=== PATIENT | female | born 1975 ===

== ENCOUNTER 2020-04-30 14:27 | Outpatient (REF) | payer SELFPAY ==
[2020-04-30 14:46] LABS: COVID-19 Test Negative (Negative)
== END 2020-04-30 14:28 | disposition home or self-care (01) ==
LOC: HO.LAB 14:27
PROVIDERS: Visit Provider Internal Medicine
DX: Z20.828 Contact with and (suspected) exposure to other viral communicable diseases (principal)
CPT/HCPCS: 87635

== ENCOUNTER 2020-05-07 07:21 | Outpatient (REF) | payer OTHER, SELFPAY ==
[2020-05-07 08:13] LABS: COVID-19 Test Negative (Negative)
== END 2020-05-07 07:22 | disposition home or self-care (01) ==
LOC: HO.LAB 07:21
PROVIDERS: Visit Provider Internal Medicine
DX: Z20.828 Contact with and (suspected) exposure to other viral communicable diseases (principal)
CPT/HCPCS: 87635

== ENCOUNTER 2020-05-09 14:15 | Outpatient (REF) | payer OTHER, SELFPAY ==
[2020-05-09 14:35] LABS: COVID-19 Test Negative (Negative)
== END 2020-05-09 14:16 | disposition home or self-care (01) ==
LOC: HO.LAB 14:15
PROVIDERS: Visit Provider Internal Medicine
DX: Z20.828 Contact with and (suspected) exposure to other viral communicable diseases (principal)
CPT/HCPCS: 87635

== ENCOUNTER 2020-12-29 10:10 | Emergency (ER) | payer OTHER, SELFPAY ==
--- NOTE | ~2020-12-29 | US_ITS ---
EXAMINATION: ULTRASOUND PELVIS TRANSVAGINAL CLINICAL INFORMATION: Severe pelvic pain rule out ovarian torsion chest COMPARISON: None TECHNIQUE: Transabdominal and transvaginal imaging of pelvis is performed FINDINGS: The uterus is anteverted measuring 8.8 cm in length, 4.7 cm in AP and 5.8 cm in transverse dimension. The myometrium is heterogeneous in echotexture. The endometrial thickness measures 0.72 cm. No focal lesions seen. There is small fluid within the cervical canal. Right ovary measures 4.3 x 1.9 x 3.0 cm and volume 12.5 cm. A small anechoic simple cyst measuring 1.7 x 1.9 x 1.6 cm. The left ovary is irregular and measures 5.3 x 2.4 x 2.1 cm. It is slightly hyperemic.. There is small or free fluid in cul-de-sac. US/US pelvic and transvaginal IMPRESSION: Heterogenous myometrium but no focal lesion seen. Simple right ovarian cyst. Irregular appearing ovary slightly hyperemic but no focal lesion seen. There is no ovarian torsion. There is minimal free fluid in cul-de-sac and the cervical canal.
--- NOTE | ~2020-12-29 | US_ITS ---
EXAMINATION: ULTRASOUND PELVIS TRANSVAGINAL CLINICAL INFORMATION: Severe pelvic pain rule out ovarian torsion chest COMPARISON: None TECHNIQUE: Transabdominal and transvaginal imaging of pelvis is performed FINDINGS: The uterus is anteverted measuring 8.8 cm in length, 4.7 cm in AP and 5.8 cm in transverse dimension. The myometrium is heterogeneous in echotexture. The endometrial thickness measures 0.72 cm. No focal lesions seen. There is small fluid within the cervical canal. Right ovary measures 4.3 x 1.9 x 3.0 cm and volume 12.5 cm. A small anechoic simple cyst measuring 1.7 x 1.9 x 1.6 cm. The left ovary is irregular and measures 5.3 x 2.4 x 2.1 cm. It is slightly hyperemic.. There is small or free fluid in cul-de-sac. US/US pelvic ovarian doppler IMPRESSION: Heterogenous myometrium but no focal lesion seen. Simple right ovarian cyst. Irregular appearing ovary slightly hyperemic but no focal lesion seen. There is no ovarian torsion. There is minimal free fluid in cul-de-sac and the cervical canal.
--- NOTE | ~2020-12-29 | CT_ITS ---
EXAMINATION: CT ABDOMEN AND PELVIS WITH CONTRAST CLINICAL INFORMATION: Lower abdominal pain and elevated white blood cell count. COMPARISON: Previous pelvic ultrasound from earlier the same day TECHNIQUE: Multidetector volumetric images were obtained from the superior aspect of the liver through the pubic symphysis following administration 85 mL of Omnipaque 350 intravenous contrast. Sagittal and coronal reformatted images were obtained on the technologist's workstation. Oral contrast: Yes This CT examination was performed using dose optimization techniques as appropriate, variously including the following: *Automated exposure control *Adjustment of mA and/or kV according to patient size (this includes techniques or standardized protocols for targeted exams where dose is matched to indication/reason for exam; i.e. extremities or head) *Use of iterative reconstruction technique DLP: 646 mGy-cm. FINDINGS: LUNG BASES: The visualized lung bases are unremarkable. LIVER, GALLBLADDER, AND BILIARY TREE: There are 2 small low-attenuation liver lesions probably representing is measuring 5 mm high in the right lobe axial image 22 measuring 1 cm in the dome of the liver axial image 10 series 3. The gallbladder is normal. There is no biliary duct dilatation. PANCREAS: Unremarkable. SPLEEN: Unremarkable. ADRENAL GLANDS: Unremarkable. KIDNEYS AND URETERS: The kidneys are normal in size, shape, and attenuation. No hydronephrosis, hydroureter, or calculi seen. No perinephric stranding. BLADDER: Unremarkable. GASTROINTESTINAL TRACT: There is diverticulosis of the colon. There is wall thickening of the sigmoid colon and stranding of the pericolic fat suggestive of mild sigmoid diverticulitis. There is a small amount of fluid in the pelvis. No evidence of obstruction, perforation or abscess is seen. The small and large bowel is otherwise unremarkable. The appendix is not seen. The stomach is unremarkable. ABDOMINAL WALL: No significant hernia is appreciated. LYMPH NODES: Normal. VASCULAR: Unremarkable. PELVIC VISCERA: There are surgical clips in the pelvis. The uterus and adnexa are otherwise unremarkable. There is a small amount of fluid in the pelvis. OSSEOUS STRUCTURES: Unremarkable. CT/CT abdomen pelvis w con IMPRESSION: Sigmoid diverticulitis. Small amount of fluid in the pelvis.
[2020-12-29 10:16] VITALS: BP 132/74; PULSE 99; RESP 20; TEMP 36.5; O2SAT 100; BMI 28.7
[2020-12-29 10:25] VITALS: BP 132/74; PULSE 97; RESP 20; O2SAT 100
--- NOTE | 2020-12-29 10:27 | PC.NURSE ---
Pt alert, oriented, vss, no sob, LSCTA. Pt reports diffused abd pain and bloating since last night which has gotten worse over the course of the morning. She reports nausea no vomiting. Tender to touch LL abd, visible abd bloating, +Bowel sounds x4, HOWARD Avelar at bedside.
--- NOTE | 2020-12-29 10:44 | ED_ITS ---
HPI - Abdominal Pain General Chief Complaint: Abdominal Pain <HOWARD Kendall - Last Filed: 12/29/20 16:21> Stated Complaint: ?Ovarian Cyst <HOWARD Kendall - Last Filed: 12/29/20 16:21> Time Seen by Provider: 12/29/20 10:22 <HOWARD Kendall - Last Filed: 12/29/20 16:21> Source: patient <HOWARD Kendall - Last Filed: 12/29/20 16:21> Mode of arrival: ambulatory <HOWARD Kendall - Last Filed: 12/29/20 16:21> Limitations: no limitations <HOWARD Kendall - Last Filed: 12/29/20 16:21> History of Present Illness HPI narrative: 45 y/o female with remote history of breast cancer, history of ovarian artery equalization in the past who presents with severe lower abdominal pain that started last night. Pain is sharp and stabbing and located in her lower abdomen, last night was worse on the left and now it is diffusely painful throu ghout her lower abdomen. She denies vaginal bleeding or discharge. LMP 6/5. She thinks she has an ovarian cyst in the past and it feels like it ruptured. She is s/p appendectomy in the past. She denies N/V/D or constipation. No fever or chills. <HOWARD Kendall - Last Filed: 12/29/20 16:21> MD elicited complaint: abdominal pain <HOWARD Kendall - Last Filed: 12/29/20 16:21> Pertinent past history: none <HOWARD Kendall - Last Filed: 12/29/20 16:21> Onset (ago): day(s) (1) <HOWARD Kendall - Last Filed: 12/29/20 16:21> Pain Consistency: constant <HOWARD Kendall Last Filed: 12/29/20 16:21> Location: suprapubic and pelvis <HOWARD Kendall Last Filed: 12/29/20 16:21> Severity: moderate <HOWARD Kendall Last Filed: 12/29/20 16:21> Quality: stabbing and sharp <HOWARD Kendall Last Filed: 12/29/20 16:21> Radiation: none <HOWARD Kendall Last Filed: 12/29/20 16:21> Migration to: no migration <HOWARD Kendall Last Filed: 12/29/20 16:21> Exacerbating factors: movement <HOWARD Kendall Last Filed: 12/29/20 16:21> Relieving factors: medication <HOWARD Kendall Last Filed: 12/29/20 16:21> Associated symptoms: denies other symptoms <HOWARD Kendall Last Filed: 12/29/20 16:21> Treatments prior to arrival: NSAIDs <HOWARD Kendall Last Filed: 12/29/20 16:21> Related Data Home Medications: Previous Rx's Medication Instructions Recorded ciprofloxacin HCl 500 mg PO BID #14 tab 12/29/20 ibuprofen 800 mg PO Q8H PRN #10 tab 12/29/20 metronidazole [Flagyl] 500 mg PO BID #14 tab 12/29/20 ondansetron HCl [Zofran] 4 mg PO Q8H PRN #10 tab 12/29/20 oxycodone 5 mg PO Q8H PRN #6 tab 12/29/20 <HOWARD Kendall Last Filed: 12/29/20 16:21> Allergies/Adverse Reactions: Allergies Allergy/AdvReac Type Severity Reaction Status Date / Time sulfamethoxazole Allergy Unknown SWELLING Unverified 04/02/20 18:51 [From BACTRIM] trimethoprim [From BACTRIM] Allergy Unknown SWELLING Unverified 04/02/20 18:51 <HWOARD Kendall Last Filed: 12/29/20 16:21> Review of Systems Review of Systems Constitutional: No Fever, No Chills ENT/Mouth: No sore throat, No Rhinorrhea, No Swallowing Difficulty Eyes: No Eye Pain, No Swelling, No Redness Cardiovascular: No Chest Pain, No SOB, No Orthopnea, No Edema Respiratory: No Cough, No Sputum, No Wheezing, No dyspnea Gastrointestinal: No Nausea, No Vomiting, No Diarrhea, + abdominal Pain, No Hematochezia, No Melena Genitourinary: No Dysuria, No Urinary Frequency, No Hematuria Musculoskeletal: No joint pain, No Myalgias Skin: No Skin Lesions, No rash Neuro: No Weakness, No Numbness, No Dizziness, No Headache Psych: No Anxiety/Panic, No Depression Heme/Lymph: No Bruising, No Lymphadenopathy Endocrine: No Polyuria, No Polydipsia <HOWARD Kendall - Last Filed: 12/29/20 16:21> Physical Exam Vital Signs: Vital Signs: Last Vital Signs Temp 97.7 F 12/29/20 10:16 Pulse 100 12/29/20 14:42 Resp 18 12/29/20 14:42 BP 130/79 12/29/20 14:42 Pulse Ox 96 12/29/20 14:42 Body Mass Index 28.7 Appearance: Alert. Oriented X3. Appears uncomfortable. Eyes: Pupils equal, round and reactive to light. ENT: Pharynx normal. Neck: Normal inspection. Neck supple. CVS: Normal heart rate and rhythm. Pulses normal. Respiratory: No respiratory distress. Breath sounds normal. Abdomen: Soft with lower abdominal tenderness and rebound and guarding. +BS x4 Skin: Skin warm and dry. Normal skin color. Normal skin turgor. No rashes. Extremities: No lower extremity edema. Neuro: Oriented X 3. No motor deficit. No sensory deficit. <HOWARD Kendall - Last Filed: 12/29/20 16:21> Vital Signs: Last Vital Signs Temp 97.7 F 12/29/20 10:16 Pulse 100 12/29/20 14:42 Resp 18 12/29/20 14:42 BP 130/79 12/29/20 14:42 Pulse Ox 96 12/29/20 14:42 Body Mass Index 28.7 <Jensen Peoples MD - Last Filed: 02/06/21 08:53> Course Course Course Narrative: 45 y/o female presenting with severe lower abdominal pain x1 day. Concern for prior ovarian cyst. Will need to r/o torsion. Pelvic U/S and labs ordered. Pain currently improved to 4/10 after 800 mg Advil taken [employer]. <HOWARD Kendall - Last Filed: 12/29/20 16:21> I have reviewed the chart <Jensen Peoples MD - Last Filed: 02/06/21 08:53> Reevaluation(s) Reevaluation #1: Labs show leukocytosis with WBC 16K. Pelvic U/S: Heterogenous myometrium but no focal lesion seen. Simple right ovarian cyst. Irregular appearing ovary slightly hyperemic but no focal lesion seen. There is no ovarian torsion. There is minimal free fluid in cul-de-sac and the cervical canal. Given patient's pain will proceed with CT scan for further evaluation. <HOWARD Kendall - Last Filed: 12/29/20 16:21> Reevaluation #2: CT showing sigmoid diverticulitis. No vomiting or fevers. She is stable for initiation of PO antibiotics, pain control, antiemetics and discharge home. She is agreeable with plan. Counseled on management and wanring signs to return to the ER. Comfortable with d/c home, instructed to return if pain worsens or if she develops fevers. <HOWARD Kendall - Last Filed: 12/29/20 16:21> MDM - Abdominal Pain Lab Data Result diagrams: : 12/29/20 10:44 12/29/20 10:44 <HOWARD Kendall - Last Filed: 12/29/20 16:21> Labs: Lab Results 12/29/20 12/29/20 12/29/20 Range/Units 10:44 10:44 12:27 WBC 16.1 H (4.8-10.8) X10*3/uL RBC 4.17 L (4.20-5.50) X10*6/uL Hgb 12.9 (12.0-16.0) g/dl Hct 37.6 (37-47) % MCV 90.2 (80-98) fL MCH 30.9 (27.0-33.0) pg MCHC 34.3 (31.0-35.0) g/dl RDW 12.5 (11.0-16.0) % Plt Count 300 (160-400) X10*3/uL MPV 9.3 L (9.4-12.3) fL Immature Gran % (Auto) 0.6 H (0.0-0.4) % Neut % (Auto) 77.7 H (45-73) % Lymph % (Auto) 11.6 L (20-40) % [place] % (Auto) 8.9 (2-11) % Eos % (Auto) 1.0 (0-4) % Baso % (Auto) 0.2 (0-2) % Lymph # (Auto) 1.9 (1.2-4.9) X10*3/uL [place] # (Auto) 1.4 H (0.1-1.2) X10*3/uL Eos # (Auto) 0.2 (0.0-0.4) X10*3/uL Baso # (Auto) 0.0 (0.0-0.2) X10*3/uL Abs Immat Gran (auto) 0.09 H (0.00-0.03) X10*3/uL Absolute Neuts (auto) 12.5 H (2.0-8.3) X10*3/uL Absolute Nucleated RBC 0.000 (0.0-0.012) X10*3/uL Nucleated RBC % (auto) 0.0 (0.0-0.2) /100WBC Sodium 138 (135-145) mmol/L Potassium 3.9 (3.3-5.1) mmol/L Chloride 106 (96-108) mmol/L Carbon Dioxide 23 (22-29) mmol/L Anion Gap 13 (12-20) BUN 8 L (9-16) mg/dL Creatinine 0.68 (0.5-1.4) mg/dL Estim Creat Clear Calc 110.8 Estimated GFR > 60 Random Glucose 88 (60-115) mg/dL Calcium 8.9 (8.4-10.2) mg/dL Magnesium 1.8 (1.6-2.6) mg/dL Total Bilirubin 1.1 H (0.0-1.0) mg/dL Direct Bilirubin 0.4 (0.0-0.5) mg/dL AST 13 (5-31) U/L ALT 13 (0-31) U/L Alkaline Phosphatase 57 (39-117) U/L Total Protein 6.6 (6.5-8.0) g/dL Albumin 4.1 (3.5-5.0) g/dL Urine Color YELLOW Urine Appearance HAZY Urine pH 7.5 (5.0-8.0) Ur Specific [place] 1.010 (1.005-1.025) Urine Protein NEG (NEG-TRACE) MG/DL Urine Glucose (UA) NEG (NEG) MG/DL Urine Ketones 15 (NEG) MG/DL Urine Blood 1+ H (NEG) Urine Nitrite NEG (NEG) Ur Leukocyte Esterase NEG (NEG) Urine RBC 5-9 H (0) /HPF Urine WBC 0 (0-4) /HPF Ur Squamous Epith Cells 1+ /LPF Urine Bacteria NONE /LPF Urine Test (NEGATIVE) 12/29/20 Range/Units 12:27 WBC (4.8-10.8) X10*3/uL RBC (4.20-5.50) X10*6/uL Hgb (12.0-16.0) g/dl Hct (37-47) % MCV (80-98) fL MCH (27.0-33.0) pg MCHC (31.0-35.0) g/dl RDW (11.0-16.0) % Plt Count (160-400) X10*3/uL MPV (9.4-12.3) fL Immature Gran % (Auto) (0.0-0.4) % Neut % (Auto) (45-73) % Lymph % (Auto) (20-40) % [place] % (Auto) (2-11) % Eos % (Auto) (0-4) % Baso % (Auto) (0-2) % Lymph # (Auto) (1.2-4.9) X10*3/uL [place] # (Auto) (0.1-1.2) X10*3/uL Eos # (Auto) (0.0-0.4) X10*3/uL Baso # (Auto) (0.0-0.2) X10*3/uL Abs Immat Gran (auto) (0.00-0.03) X10*3/uL Absolute Neuts (auto) (2.0-8.3) X10*3/uL Absolute Nucleated RBC (0.0-0.012) X10*3/uL Nucleated RBC % (auto) (0.0-0.2) /100WBC Sodium (135-145) mmol/L Potassium (3.3-5.1) mmol/L Chloride (96-108) mmol/L Carbon Dioxide (22-29) mmol/L Anion Gap (12-20) BUN (9-16) mg/dL Creatinine (0.5-1.4) mg/dL Estim Creat Clear Calc Estimated GFR Random Glucose (60-115) mg/dL Calcium (8.4-10.2) mg/dL Magnesium (1.6-2.6) mg/dL Total Bilirubin (0.0-1.0) mg/dL Direct Bilirubin (0.0-0.5) mg/dL AST (5-31) U/L ALT (0-31) U/L Alkaline Phosphatase (39-117) U/L Total Protein (6.5-8.0) g/dL Albumin (3.5-5.0) g/dL Urine Color Urine Appearance Urine pH (5.0-8.0) Ur Specific [place] (1.005-1.025) Urine Protein (NEG-TRACE) MG/DL Urine Glucose (UA) (NEG) MG/DL Urine Ketones (NEG) MG/DL Urine Blood (NEG) Urine Nitrite (NEG) Ur Leukocyte Esterase (NEG) Urine RBC (0) /HPF Urine WBC (0-4) /HPF Ur Squamous Epith Cells /LPF Urine Bacteria /LPF Urine Test NEGATIVE (NEGATIVE) <HOWARD Kendall - Last Filed: 12/29/20 16:21> Lab Results 12/29/20 12/29/20 12/29/20 Range/Units 10:44 10:44 12:27 WBC 16.1 H (4.8-10.8) X10*3/uL RBC 4.17 L (4.20-5.50) X10*6/uL Hgb 12.9 (12.0-16.0) g/dl Hct 37.6 (37-47) % MCV 90.2 (80-98) fL MCH 30.9 (27.0-33.0) pg MCHC 34.3 (31.0-35.0) g/dl RDW 12.5 (11.0-16.0) % Plt Count 300 (160-400) X10*3/uL MPV 9.3 L (9.4-12.3) fL Immature Gran % (Auto) 0.6 H (0.0-0.4) % Neut % (Auto) 77.7 H (45-73) % Lymph % (Auto) 11.6 L (20-40) % [place] % (Auto) 8.9 (2-11) % Eos % (Auto) 1.0 (0-4) % Baso % (Auto) 0.2 (0-2) % Lymph # (Auto) 1.9 (1.2-4.9) X10*3/uL [place] # (Auto) 1.4 H (0.1-1.2) X10*3/uL Eos # (Auto) 0.2 (0.0-0.4) X10*3/uL Baso # (Auto) 0.0 (0.0-0.2) X10*3/uL Abs Immat Gran (auto) 0.09 H (0.00-0.03) X10*3/uL Absolute Neuts (auto) 12.5 H (2.0-8.3) X10*3/uL Absolute Nucleated RBC 0.000 (0.0-0.012) X10*3/uL Nucleated RBC % (auto) 0.0 (0.0-0.2) /100WBC Sodium 138 (135-145) mmol/L Potassium 3.9 (3.3-5.1) mmol/L Chloride 106 (96-108) mmol/L Carbon Dioxide 23 (22-29) mmol/L Anion Gap 13 (12-20) BUN 8 L (9-16) mg/dL Creatinine 0.68 (0.5-1.4) mg/dL Estim Creat Clear Calc 110.8 Estimated GFR > 60 Random Glucose 88 (60-115) mg/dL Calcium 8.9 (8.4-10.2) mg/dL Magnesium 1.8 (1.6-2.6) mg/dL Total Bilirubin 1.1 H (0.0-1.0) mg/dL Direct Bilirubin 0.4 (0.0-0.5) mg/dL AST 13 (5-31) U/L ALT 13 (0-31) U/L Alkaline Phosphatase 57 (39-117) U/L Total Protein 6.6 (6.5-8.0) g/dL Albumin 4.1 (3.5-5.0) g/dL Urine Color YELLOW Urine Appearance HAZY Urine pH 7.5 (5.0-8.0) Ur Specific [place] 1.010 (1.005-1.025) Urine Protein NEG (NEG-TRACE) MG/DL Urine Glucose (UA) NEG (NEG) MG/DL Urine Ketones 15 (NEG) MG/DL Urine Blood 1+ H (NEG) Urine Nitrite NEG (NEG) Ur Leukocyte Esterase NEG (NEG) Urine RBC 5-9 H (0) /HPF Urine WBC 0 (0-4) /HPF Ur Squamous Epith Cells 1+ /LPF Urine Bacteria NONE /LPF Urine Test (NEGATIVE) 12/29/20 Range/Units 12:27 WBC (4.8-10.8) X10*3/uL RBC (4.20-5.50) X10*6/uL Hgb (12.0-16.0) g/dl Hct (37-47) % MCV (80-98) fL MCH (27.0-33.0) pg MCHC (31.0-35.0) g/dl RDW (11.0-16.0) % Plt Count (160-400) X10*3/uL MPV (9.4-12.3) fL Immature Gran % (Auto) (0.0-0.4) % Neut % (Auto) (45-73) % Lymph % (Auto) (20-40) % [place] % (Auto) (2-11) % Eos % (Auto) (0-4) % Baso % (Auto) (0-2) % Lymph # (Auto) (1.2-4.9) X10*3/uL [place] # (Auto) (0.1-1.2) X10*3/uL Eos # (Auto) (0.0-0.4) X10*3/uL Baso # (Auto) (0.0-0.2) X10*3/uL Abs Immat Gran (auto) (0.00-0.03) X10*3/uL Absolute Neuts (auto) (2.0-8.3) X10*3/uL Absolute Nucleated RBC (0.0-0.012) X10*3/uL Nucleated RBC % (auto) (0.0-0.2) /100WBC Sodium (135-145) mmol/L Potassium (3.3-5.1) mmol/L Chloride (96-108) mmol/L Carbon Dioxide (22-29) mmol/L Anion Gap (12-20) BUN (9-16) mg/dL Creatinine (0.5-1.4) mg/dL Estim Creat Clear Calc Estimated GFR Random Glucose (60-115) mg/dL Calcium (8.4-10.2) mg/dL Magnesium (1.6-2.6) mg/dL Total Bilirubin (0.0-1.0) mg/dL Direct Bilirubin (0.0-0.5) mg/dL AST (5-31) U/L ALT (0-31) U/L Alkaline Phosphatase (39-117) U/L Total Protein (6.5-8.0) g/dL Albumin (3.5-5.0) g/dL Urine Color Urine Appearance Urine pH (5.0-8.0) Ur Specific [place] (1.005-1.025) Urine Protein (NEG-TRACE) MG/DL Urine Glucose (UA) (NEG) MG/DL Urine Ketones (NEG) MG/DL Urine Blood (NEG) Urine Nitrite (NEG) Ur Leukocyte Esterase (NEG) Urine RBC (0) /HPF Urine WBC (0-4) /HPF Ur Squamous Epith Cells /LPF Urine Bacteria /LPF Urine Test NEGATIVE (NEGATIVE) <Jensen Peoples MD - Last Filed: 02/06/21 08:53> Discharge Plan Discharge Clinical Impression: Diverticulitis <HOWARD Kendall - Last Filed: 12/29/20 16:21> Patient Disposition: Home, Self-Care <HOWARD Kendall - Last Filed: 12/29/20 16:21> Instructions: Diverticulitis (ED), Diverticulitis Diet (ED) <HOWARD Kendall - Last Filed: 12/29/20 16:21> Additional Instructions: Your CT scan showed diverticulitis of your sigmoid colon. Take all of the medications as prescribed. If you develop worsening abdominal pain, nausea or vomiting or fevers come back to the ER for further evaluation. Follow up with GI in 1 week. Stick to a pure liquid diet for 48-72 hours. Allow your bowels to rest. <HOWARD Kendall - Last Filed: 12/29/20 16:21> Prescriptions: New ciprofloxacin HCl 500 mg tablet 500 mg PO BID Qty: 14 RF: 0 metronidazole [Flagyl] 500 mg tablet 500 mg PO BID Qty: 14 RF: 0 ondansetron HCl [Zofran] 4 mg tablet 4 mg PO Q8H PRN (Reason: nausea and vomiting) Qty: 10 RF: 0 ibuprofen 800 mg tablet 800 mg PO Q8H PRN (Reason: pain) Qty: 10 RF: 0 oxycodone 5 mg tablet 5 mg PO Q8H PRN (Reason: pain) Qty: 6 RF: 0 <HOWARD Kendall - Last Filed: 12/29/20 16:21> Referrals: Sosa Jackson MD [Physician] - 1 week (sigmoid diverticulitis ) <HOWARD Kendall - Last Filed: 12/29/20 16:21> Stand Alone Forms: Work/School Release <HOWARD Kendall - Last Filed: 12/29/20 16:21> Interventions: ED Discharge Assessment Last Done: 12/29/20 16:36 <HOWARD Kendall - Last Filed: 12/29/20 16:21> Discharge Date/Time: 12/29/20 16:38 <HOWARD Kendall - Last Filed: 12/29/20 16:21> [facility] Past Medical History Attestation statement: The following information was validated with the patient. <HOWARD Kendall - Last Filed: 12/29/20 16:21> Medical History: Medical History (Updated 12/30/20 @ 00:01 by Monique Contreras) Breast cancer <HOWARD Kendall - Last Filed: 12/29/20 16:21> Surgical History: Surgical History (Updated 12/29/20 @ 13:21 by HOWARD Kendall) History of appendectomy Status post embolization of uterine artery <HOWARD Kendall - Last Filed: 12/29/20 16:21> Social History Social History: Social History Use of substances other than those prescribed or required for medical reasons: No Advance Directives: No Advance Directives Information Provided: No <HOWARD Kendall - Last Filed: 12/29/20 16:21>
[2020-12-29 10:48] LABS: MANUAL DIFF FLAG NO
[2020-12-29 10:50] LABS: Basophils Percent Auto 0.2 % (0-2); Eosinophils Absolute Auto 0.2 X10*3/uL (0.0-0.4); Hematocrit 37.6 % (37-47); Hemoglobin 12.9 g/dl (12.0-16.0); Imm Gran Abs Auto 0.09 X10*3/uL (0.00-0.03); Imm Gran Pct Auto 0.6 % (0.0-0.4); Lymphocytes Absolute Auto 1.9 X10*3/uL (1.2-4.9); Lymphocytes Percent Auto 11.6 % (20-40); Mean Corpuscular HGB Conc 34.3 g/dl (31.0-35.0); Mean Corpuscular Hemoglobin 30.9 pg (27.0-33.0); Mean Corpuscular Volume 90.2 fL (80-98); Mean Platelet Volume 9.3 fL (9.4-12.3); Monocytes Absolute Auto 1.4 X10*3/uL (0.1-1.2); Monocytes Percent Auto 8.9 % (2-11); Neutrophils Absolute Auto 12.5 X10*3/uL (2.0-8.3); Neutrophils Percent Auto 77.7 % (45-73); Platelet Count 300 X10*3/uL (160-400); Red Blood Count 4.17 X10*6/uL (4.20-5.50); Red Cell Distribution Width 12.5 % (11.0-16.0); White Blood Count 16.1 X10*3/uL (4.8-10.8)
--- NOTE | 2020-12-29 10:56 | PC.NURSE ---
Pt to ultrasound at this time.
[2020-12-29 11:17] LABS: Alanine Aminotransferase 13 U/L (0-31); Albumin Level 4.1 g/dL (3.5-5.0); Alkaline Phosphatase 57 U/L (39-117); Anion Gap 13 (12-20); Aspartate Amino Transferase 13 U/L (5-31); Bilirubin Direct 0.4 mg/dL (0.0-0.5); Bilirubin Total 1.1 mg/dL (0.0-1.0); Blood Urea Nitrogen 8 mg/dL (9-16); Calcium 8.9 mg/dL (8.4-10.2); Carbon Dioxide 23 mmol/L (22-29); Chloride 106 mmol/L (96-108); Creatinine Clr Calc Pharmacy 110.8; Estimated Glomerular Filt Rate > 60; Glucose Random 88 mg/dL (60-115); Magnesium 1.8 mg/dL (1.6-2.6); Potassium 3.9 mmol/L (3.3-5.1); Sodium 138 mmol/L (135-145); Total Protein 6.6 g/dL (6.5-8.0)
[2020-12-29 12:05] VITALS: BP 120/79; PULSE 103; RESP 20; O2SAT 100
[2020-12-29 12:35] LABS: Glucose Urine UA NEG (NEG); Leukocyte Esterase Urine NEG (NEG); Nitrite Urine NEG (NEG); PH 7.5 (5.0-8.0); Urine Blood 1+ (NEG); Urine Ketones 15 MG/DL (NEG); Urine Protein NEG (NEG-TRACE)
[2020-12-29 12:37] LABS: Appearance Urine HAZY; Color Urine YELLOW; UPreg QC Valid YES; Urine Pregnancy NEGATIVE (NEGATIVE)
[2020-12-29 12:43] LABS: Squamous Epithelial Cell Urine 1+ /LPF; WBC Urine 0 /HPF (0-4)
[2020-12-29] MEDS: Acetaminophen 325 MG TABLET 975 MG PO (13:46)
[2020-12-29 13:47] VITALS: BP 146/82; PULSE 103; RESP 16; O2SAT 98
[2020-12-29] MEDS: iohexoL 350 MG/ML 100 ML INFUS..BTL IV (14:11)
[2020-12-29 14:42] VITALS: BP 130/79; PULSE 100; RESP 18; O2SAT 96
== END 2020-12-29 16:38 | disposition home or self-care (01) ==
PROVIDERS: Physician Assistant; Emergency Provider Emergency Medicine; PCP Internal Medicine
DX: K57.32 Diverticulitis of large intestine without perforation or abscess without bleeding (principal); R10.30 Lower abdominal pain, unspecified; Z85.3 Personal history of malignant neoplasm of breast
CPT/HCPCS: 36415; 74177; 76830; 76856; 80048; 80076; 81001; 81025; 83735; 85025; 93975; 99285; Q9967

== ENCOUNTER 2024-03-27 07:54 | Outpatient (AMB) | payer OTHER, SELFPAY ==
--- NOTE | 2024-03-27 07:59 | A.OFFPC_ITS ---
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 Intake Note: new patient to establish care Allergies sulfamethoxazole [From BACTRIM] Allergy (Unknown, Verified 03/27/24 08:27) SWELLING trimethoprim [From BACTRIM] Allergy (Unknown, Verified 03/27/24 08:27) SWELLING Medication List - Last Reconciled 03/27/24 by IBETH Albarran No Known Home Meds Tobacco use date assessed: 03/27/24 Dental Screening Dental Screen Date: 03/27/24 Did you have a dental visit in the last 12 months?: Yes Did you have a dental problem in the last 6 months where you did not have access to dental care?: No Was dental information given to patient?: Patient has dentist HPI HPI Comments History of Present Illness Details 48-year-old female with 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 Colon 2020 done at [facility] ? Mammo UTD ? DEXA n/a ? PAP UTD ? 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 Counseling Here today to establish care. Coming from [place]. No medical records available as of this time. Today the patient would like to discuss mood. Reports that she is perimenopausal. Reports over the last several years she has had symptoms of anxiety and depression. She has been in out of counseling. She is currently in counseling. This has been going helpful. She has never been any medications. When asked about her symptoms she reports that she feels like she has no coping skills, she has a bad temper and does not feel herself. She feels like she is being a bad parent as she loses her temper. She reports that she has a supportive other than that limited social support as she feels more comfortable receiving the travels of others than sharing her travels. Be that as it may, she denies any SI or HI. She denies any night could have coping skills. She does use the gym to help manage her mood. She is profoundly changed her diet in leads a healthy lifestyle. She is open to trying medications. Otherwise in regards to her breast cancer history she reports that she is currently enrolled in his [employer] [facility] for the next several years. She was diagnosed with breast cancer at age 36 during a routine mammo done prior to starting IVF. She is not currently followed by Oncology or breast specialist. She reports that she is clear for routine surveillance. Exam: Awake alert oriented, no acute distress Regular rate and rhythm Thyroid nontender Lung sounds clear to auscultation bilat Tearful when talking about her mood, appropriate and pleasant Plan Check screening labs today >nothing contributing to her anxiety and depressive symptoms. Recommend starting Paxil at a low dose once per day. Continue counseling. Return to the office in 6 weeks to follow up on the start of Paxil, sooner as needed. Labs from today show a normal CBC, normal electrolytes, normal renal function, fasting glucose of 106, hemoglobin A1c 4.9%, normal iron profile, normal LFTs, total cholesterol 189, triglycerides 44, LDL 126, HDL 55, normal B12 folate vitamin-D and TSH This note is constructed using voice recognition software. While every effort has been made to ensure accuracy in putter in, still errors may have been included Sometimes, these errors may affect the content or meaning of the given sentence . Total time spent caring for the patient today was 45 minutes. This includes time spent before the visit reviewing the chart, time spent during the visit, and time spent after the visit on documentation [facility] Medical History (Updated 03/27/24 @ 13:45 by WHIT Albarran-MARTÍN) Diverticulitis Breast cancer Surgical History (Updated 03/27/24 @ 13:45 by WHIT Albarran-MARTÍN) Status post embolization of uterine artery History of appendectomy Family History (Updated 03/27/24 @ 08:14 by Vida Law MA) Father Substance abuse Alcoholic Paternal Grandfather Hypertension High cholesterol Diabetes Cardiovascular disease Mother Thyroid cancer Social History (Updated 03/27/24 @ 08:14 by Vida Law MA) Household Members: Spouse and Children Housing: House Are you a primary director of health care marketing to a significant other at home: No Do you presently have visiting nurse or other home services: No Alcohol intake: current Alcohol intake frequency: a few times a month Alcohol type: wine Patient Tobacco Use Status: Never used Tobacco e-Cigarette/Vaping Use: Never Used service: No Current occupational status: employed 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 1. Little interest or pleasure in doing things: not at all 2. Feeling down, depressed, or hopeless: several days 3. Trouble falling or staying asleep, or sleeping too much: several days 4. Feeling tired or having little energy: more than half the days 5. Poor appetite or overeating: more than half the days 6. Feeling bad about yourself - or that you are a failure or have let yourself or your family down: more than half the days 7. Trouble concentrating on things, such as reading the newspaper or watching television: more than half the days 8. Moving or speaking so slowly that other people could have noticed. Or the opposite - being so fidgety or restless that you have been moving around a lot more than usual: not at all 9. Thoughts that you would be better off or of hurting yourself in some way: not at all Total score: 10 Depression Screening Interpretation: Positive Depression Screening Follow-up: In treatment and New Medication prescribed Depression Screening Done: Yes 06351 - PHQ-9 Billing: Yes Source: Developed by Drs. Tera Miller, Ksenia English, Bola Montiel and colleagues, with an educational jagruti from [employer]. Thrive Questionnaire Date Thrive assessed: 03/27/24 I am a: Patient What is your living situation today?: I have a steady place to live Within the past 12 months, did the food you bought not last and you didn't have the money to get more?: Never true Within the past 12 months, did you worry whether your food would run out before you got money to buy more?: Never true Do you have trouble paying for medicines?: No Do you have trouble getting transportation to medical appointments?: No Do you have trouble paying your heating and electricity bill?: No Do you have trouble taking care of your child, family member or friend?: No Do you have trouble with day-to-day activities such as bathing, preparing meals, shopping, managing finances, etc.?: No Are you currently unemployed and looking for a job?: No Are you interested in more education?: No Please select the resources that you would like help with: None THRIVE Score: 0 AUDIT C Alcohol Use Questionnaire (AUDIT-C) 1. How often do you have a drink containing alcohol?: Never 3. How often do you have six or more drinks on one occasion?: Never Total Score: 0 Score Reviewed/Action Taken: Yes HEATHER-7 AMB Questionnaire HEATHER-7 Date HEATHER - 7 assessed: 03/27/24 Feeling nervous, anxious, or on edge: 2 = More than half the days Not being able to stop or control worryin = More than half the days Worrying too much about different things: 2 = More than half the days Trouble relaxin = More than half the days Being so restless that it is hard to sit still: 2 = More than half the days Becoming easily annoyed or irritable: 2 = More than half the days Feeling afraid as if something awful might happen: 1 = Several days Total HEATHER-7 score (0-4 normal; 5-9 mild; 10-14 moderate; 15-21 severe): 13 Source: Developed by Drs. Tera Miller, Ksenia English, Bola Montiel and colleagues, with an educational jagruti from [employer]. HEATHER-7 Assessment Billing HEATHER-7 Assessment Tool: HEATHER-7 Assessment 42915 Physical exam (Primary Care) Vital Signs: Last Vital Signs Pulse 84 03/27/24 08:06 Resp 15 03/27/24 08:06 BP 142/74 H 03/27/24 08:06 Pulse Ox 100 03/27/24 08:06 Oxygen Delivery Method Room Air 03/27/24 08:06 BMI result Body Mass Index 23.9 Tobacco/Smoking Status: Tobacco use Status Tobacco use date assessed 03/27/24 03/27/24 08:09 Patient Tobacco Use Status Never used Tobacco 03/27/24 08:14 e-Cigarette/Vaping Use Never Used 03/27/24 08:09 PHQ-9: PHQ-9 Score PHQ-9: Total score 10 03/27/24 08:27 Depression Screening Interpretation: Positive Depression Screening Follow-up: In treatment and New Medication prescribed Thrive Assessment: Date of Thrive Assessment Date Thrive assessed 03/27/24 03/27/24 08:11 Assessment and Plan Assessment & Plan (1) MDD (major depressive disorder), recurrent episode: Code(s): F33.9 - Major depressive disorder, recurrent, unspecified Qualifiers: Major depression episode severity: mild Qualified Code(s): F33.0 - Major depressive disorder, recurrent, mild (2) HEATHER (generalized anxiety disorder): Code(s): F41.1 - Generalized anxiety disorder (3) Perimenopause: Code(s): N95.1 - Menopausal and female climacteric states (4) Ductal carcinoma in situ (DCIS) of left breast: Comment: dx age 36 in full remission, s/p lumpectomy Code(s): D05.12 - Intraductal carcinoma in situ of left breast (5) S/P lumpectomy, left breast: Code(s): Z98.890 - Other specified postprocedural states (6) Laboratory exam ordered as part of routine general medical examination: Code(s): Z00.00 - Encounter for general adult medical examination without abnormal findings Orders: Orders Comprehensive [place]. Panel Fast Today Z00.00 - Encounter for general adult medical examination without abnormal findings Hemoglobin A1c Today Z00.00 - Encounter for general adult medical examination without abnormal findings TSH reflex Free T4 Today Z00.00 - Encounter for general adult medical examination without abnormal findings Vitamin B12 and Folate Today Z00.00 - Encounter for general adult medical examination without abnormal findings IRON PROFILE Today Z00.00 - Encounter for general adult medical examination without abnormal findings Vitamin D 25-OH Total Today Z00.00 - Encounter for general adult medical examination without abnormal findings Complete Blood Count no Diff Today Z00.00 - Encounter for general adult medical examination without abnormal findings Lipid Panel Today Z00.00 - Encounter for general adult medical examination without abnormal findings Microalbumin, Random (w Creat) Today Z00.00 - Encounter for general adult medical examination without abnormal findings Medications: New paroxetine HCl (Paxil) 10 mg PO DAILY 30 tabs 1RF Discontinued ibuprofen Discontinued Reason: Patient no longer taking 800 mg PO Q8H PRN 10 tabs 0RF pain oxycodone Discontinued Reason: Patient no longer taking 5 mg PO Q8H PRN 6 tabs 0RF pain ciprofloxacin HCl Discontinued Reason: Patient no longer taking 500 mg PO BID 14 tabs 0RF metronidazole (Flagyl) Discontinued Reason: Patient no longer taking 500 mg PO BID 14 tabs 0RF ondansetron HCl (Zofran) Discontinued Reason: Patient no longer taking 4 mg PO Q8H PRN 10 tabs 0RF nausea and vomiting Patient Instructions: Walk-In Care (Urgent Care): We Make it Easy Walk-in for urgent medical issues such as: ? Seasonal Allergies ? Insect Bites ? Cough ? Diarrhea ? Acute Asthma Attacks ? Back, Knee or Joint Pain ? Ear Infection ? Fever without a Rash ? Headaches ? Nausea ? [place], Rash or Skin Irritation ? Sore Throat ? Sports Physicals ? Vomiting Most insurances are accepted. Patients do not need to be part of the [facility] to seek care at the walk-in clinic. Locations [address] [place] [address] , [place] [address] ? [phone] [facility] Walk-In Care in [place] provides services to ages 18 and over. Open Monday-Monday: 8 a.m. to 5 p.m. and Monday: 9 a.m. to 3 p.m.* *Hours may vary due to staffing availability. To confirm Walk-In Care hours in [place], please call [phone]. [address] [place] [address] ? [phone] [facility] Care in [place] provides services to ages 12 and over. Open Monday-Monday: 8 a.m. to 5 p.m. Hours may vary due to staffing availability. To confirm Walk-In Care hours in [place], please call [phone]. LABORATORY SERVICES: [facility] Lab ? Primary Location [address] [place] [address] Monday through Monday 6:00 AM ? 5:00 PM Monday 7:00 AM ? 11:00 AM* [phone] The [facility] Lab is centrally located near the front entrance of the [facility] for easy outpatient access. Convenient parking is provided for outpatients. *Hours may vary due to staffing availability. To confirm Laboratory hours for any location, please call [phone]. Offsite Location For your convenience, we offer offsite laboratory draw stations at the following locations: [address] [facility], [facility] [place] ? [address], [address], [facility] Monday through Monday 7:30 AM ? 1:00 PM* [phone] *Hours may vary due to staffing availability. To confirm Laboratory hours for any location, please call [phone]. [place] ? [facility] [address] [facility], [place] Monday through Monday 6:00 AM ? 3:30 PM* Monday 6:30 AM ? 3 PM* [phone] *Hours may vary due to staffing availability. To confirm Laboratory hours for any location, please call [phone] [place] [address] Monday through Monday 7:30 AM ? 4:00 PM* [phone] *Hours may vary due to staffing availability. To confirm Laboratory hours for any location, please call [phone] [place] [address] Monday through 9:00 AM ? 4:00 PM* *Hours may vary due to staffing availability. To confirm Laboratory hours for any location, please call [phone]. Appointments are not necessary. Walk-ins are welcome. Like all the departments throughout the [facility], our Lab undergoes frequent reviews to ensure the quality and accuracy of test results, and our staff takes special pride in its status as a nationally accredited facility. Patient Portal: ONE PATIENT. ONE RECORD. BETTER CARE. [facility] has a fully integrated, cutting- edge mobile electronic health information system that has revolutionized the way we care for our patients and manage our organization. This system improves communication and coordination enabling us to provide safe, higher-quality care, and an overall positive experience for staff and patients. Our first priority, as always, is to deliver the highest quality care possible. The system is running in the background supporting that priority. This portal is for all [facility] services and practices. If you are experiencing any technical difficulties with enrolling or logging into the Patient Portal please complete the [facility] Patient Portal Technical Support Form. [facility] now offers a new secure on-line interactive tool for patients to review their health information ? ?Patient Portal. This interactive web portal will enable patients and their families to take an active role in their care by providing easy, secure access to their health information via the internet. The Patient Portal provides patients with instant access to their health in formation, including laboratory results, medications, allergies, demographic information, visit history, and more. In addition to managing their own care, parents and health care proxies with authorized consent will appreciate the ability to access the records of those individuals for whom they provide care. Please note: if you wish to gain access (Proxy) to another patient?s portal, you will be required to come to the Medical Records Department in person at [facility]. Both the patient giving proxy access and the proxy will need to provide photo identification and complete the appropriate authorization. The Patient Portal also allows track their appointments online. The [facility] Patient Portal also saves patients time by allowing them to submit updates to their demographic and contact information prior to their visits. Portal email notifications will also alert patients to any new activity on their portal, such as test results and new appointments. In order to initially enroll in the [facility] Patient Portal, you will need to enter some required information including the following: * your [facility] Medical Record number * your personal home email address * name * date of Please note: In order to enroll in the [facility] Patient Portal, we need to have your email address on file in your electronic medical record. ?The email address needs to be specific for one person (yourself) in order for your Portal enrollment to be successful. ?You can update your email address in person with our Registration staff when you are registering for a hospital visit. ?Otherwise, you will need to come to the Health Information Management (Medical Records) Department at [facility]. ?We are open from Monday ? Monday from 7:30 a.m. ? 4:30 p.m. ?You will be required to present a photo id. Once you have successfully enrolled in the Patient Portal, you will receive a one-time user id and password for the Portal, sent to your email address. ?This will allow you to log into the Patient Portal within 99 hrs and reset your own logon id and password, and define personal security questions. ?Once your permanent login and password have been set, you can log into the [facility] Patient Portal at any time via the blue button above or from the Portal Logon button on any page of the [facility] website. [facility] encourage all of our patients to enroll in Patient Portal as it presents a valuable opportunity for patients and their families to actively participate in their care and stay healthy Welcome to [facility]. ?We look forward to working with you. Crisis Hotlines Suicide prevention, domestic violence, and other crisis hotlines for youth, young adults, and their friends and families. [place] Safeline: The [employer] Safeline helps youth who have run away, are thinking about running away, or who already ran away but are ready to come home. Parents and guardians can also contact the hotline if they are worried about their child running away or if their child has already left home. The hotline is available 24 hours a day, seven days a week. Youth, parents, and guardians can also use the online chat feature on the [employer] website to ask for help and get support, [place] [address]. [place] [facility] National Suicide Prevention Lifeline: The National Suicide Prevention Lifeline is a network of local crisis centers that are available 06/02 to provide support for youth and adults who are in any kind of emotional crisis. In addition to the main hotline number listed above, there are several other numbers to call depending on your needs: Frisian Language: Deaf and Hard of Hearin1-739.433.1017 Veterans: Disaster Distress: Anyone can also use their online chat feature on their website. National Suicide Prevention Lifeline [facility] Helpline: The [facility] Helpline is available to anyone in [place] who is need of emotional support. Anyone can call or text the helpline to receive help from specially trained volunteers. [place] high school and college students can also get online support through the IM[employer]_ program. For high school students, volunteers ages 15-18 are available Monday- from 6-9PM. For college students, [employer]_ is available Monday-Monday from 5-9PM. The Ihsan Project - The Ihsan Project is a 06/02 crisis intervention and suicide prevention hotline for LGBTQ youth. Youth can also text Ihsan to for support, or use the online chat feature on the Ihsan Project's website. [employer] is available Monday-Monday between 3-10PM. [employer] is available seven days a week between 3-10PM. SafeLink: SafeLink is for anyone who is being affected by domestic violence or dating violence. Volunteers at [employer] speak Singaporean and Frisian, and [employer] also has a service that can provide translation in more than 130 languages. TTY: Coding Level of Care Code New Pt Level 4 (39526) Complex EM visit Add On G2211 Diagnoses Mild episode of recurrent major depressive disorder F33.0 Major depression episode severity: mild HEATHER (generalized anxiety disorder) F41.1 Perimenopause N95.1 Ductal carcinoma in situ (DCIS) of left breast D05.12 S/P lumpectomy, left breast Z98.890 Laboratory exam ordered as part of routine general medical examination Z00.00 Additional Codes HEATHER-7 Assessment Billing - HEATHER-7 Assessment Tool: HEATHER-7 Assessment 00028 ([id number])
[2024-03-27 08:06] VITALS: BP 142/74; PULSE 84; RESP 15; O2SAT 100; BMI 23.9
== END 2024-03-27 08:37 | disposition home or self-care (01) ==
PROVIDERS: PCP Nurse Practitioner Family; Visit Provider Nurse Practitioner Family
DX: F33.0 Major depressive disorder, recurrent, mild (principal); F41.1 Generalized anxiety disorder; N95.1 Menopausal and female climacteric states; D05.12 Intraductal carcinoma in situ of left breast; Z98.890 Other specified postprocedural states; Z00.00 Encounter for general adult medical examination without abnormal findings
CPT/HCPCS: 96127; 99204

== ENCOUNTER 2024-03-27 08:40 | Outpatient (REF) | payer OTHER, SELFPAY ==
[2024-03-27 11:34] LABS: Hematocrit 42.7 % (37.0-47.0); Hemoglobin 14.3 g/dl (12.0-16.0); Mean Corpuscular HGB Conc 33.5 g/dl (31.0-35.0); Mean Corpuscular Hemoglobin 31.4 pg (27.0-33.0); Mean Corpuscular Volume 93.8 fL (80.0-98.0); Mean Platelet Volume 9.8 fL (9.4-12.3); Platelet Count 320 X10*3/uL (160-400); Red Blood Count 4.55 X10*6/uL (4.20-5.50); Red Cell Distribution Width 13.2 % (11.0-16.0); White Blood Count 6.5 X10*3/uL (4.8-10.8)
[2024-03-27 11:39] LABS: Estimated Average Glucose 94 mg/dL; Hemoglobin A1c % 4.9 % (<6.0)
[2024-03-27 12:12] LABS: Alanine Aminotransferase 14 U/L (0-31); Albumin Level 4.3 g/dL (3.5-5.0); Alkaline Phosphatase 53 U/L (39-117); Anion Gap 11 (12-20); Aspartate Amino Transferase 14 U/L (5-31); Bilirubin Total 0.6 mg/dL (0.0-1.0); Blood Urea Nitrogen 12 mg/dL (9-16); Calcium 9.1 mg/dL (8.4-10.2); Carbon Dioxide 25 mmol/L (22-29); Chloride 108 mmol/L (96-108); Cholesterol 189 mg/dL (<200); Estimated Glomerular Filt Rate > 60; Glucose Fasting 106 mg/dL (60-99); HDL Cholesterol 55 mg/dL (>40); Iron 90 mcg/dL (30-160); LDL Cholesterol Calculated 126 mg/dL (<100); Percent Iron Saturation 37 % (15-50); Potassium 4.1 mmol/L (3.3-5.1); Sodium 140 mmol/L (135-145); TSH reflex Free T4 0.71 uIU/mL (0.32-4.0); Total Iron Binding Capacity 243 mcg/dL (228-428); Total Protein 6.8 g/dL (6.5-8.0); Triglycerides 44 mg/dL (<150); Unsaturated Iron Binding 153 ug/dL; Vitamin D 25-OH Total 48.9 ng/mL (>30)
[2024-03-27 12:21] LABS: Folate 8.9 ng/mL (> or = 4.0); Vitamin B12 586 pg/mL (200-900)
== END 2024-03-27 08:41 | disposition home or self-care (01) ==
LOC: HO.WFDLDS 08:40
PROVIDERS: Visit Provider Nurse Practitioner Family
DX: Z00.00 Encounter for general adult medical examination without abnormal findings (principal); Z13.1 Encounter for screening for diabetes mellitus
CPT/HCPCS: 36415; 80053; 80061; 82306; 82607; 82746; 83036; 83540; 84443; 85027

== ENCOUNTER 2024-03-28 09:51 | Outpatient (REF) | payer OTHER, SELFPAY ==
[2024-03-28 10:39] LABS: Creatinine Urine 20.43 mg/dL; Microalbumin Urine < 5.0 mg/L
== END 2024-03-28 09:52 | disposition home or self-care (01) ==
LOC: HO.LNP 09:51
PROVIDERS: Visit Provider Nurse Practitioner Family
DX: Z00.00 Encounter for general adult medical examination without abnormal findings (principal)
CPT/HCPCS: 82043; 82570

== ENCOUNTER 2024-05-06 08:37 | Outpatient (AMB) | payer OTHER, SELFPAY ==
--- NOTE | 2024-05-06 08:34 | A.OFFPC_ITS ---
Intake Visit Reasons: follow up Allergies sulfamethoxazole [From BACTRIM] Allergy (Unknown, Verified 05/06/24 08:36) SWELLING trimethoprim [From BACTRIM] Allergy (Unknown, Verified 05/06/24 08:36) SWELLING Medication List - Last Reconciled 05/06/24 by Fe Reid, COMFORT STATION SUPERVISOR- paroxetine HCl (Paxil) 10 mg PO DAILY Tobacco use date assessed: 03/27/24 Dental Screening Dental Screen Date: 03/27/24 HPI HPI Comments History of Present Illness Details 48-year-old female with DCIS L breast ca ncer status post lumpectomy 2019, diverticulitis, simple right ovarian cyst, liver lesions, perimenopause, HEATHER, MDD Status post appendectomy, status post embolization of uterine artery 2011, myomectomy/laparotomy 2009, ureteral peritoneal fistula repair 2011 at [facility], Social: 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 Colon 2020 done at [facility] ? Mammo UTD ? DEXA n/a ? PAP UTD ? Tdap 12/22/16, Flu 04/2024 at work Specialists: STEEL PLATE PRINTER [facility] STEEL PLATE PRINTER [facility] Counseling Telehealth visit today to fu on HEATHER & MDD Started on paxil 10mg at the last visit. Think med is going great..Helpful Does not feel like things are catastrophic Not edgy Feel like emotions are better controlled Taking right before bed Has not noticed any side effects Sleep tricky d/t hot flashes never been a great sleeper Happy where everything is right now however does wonder about coming off at some time. Rec'd flu shot at work Denies SI/HI Exam: Speaking in full sentences PHQ and HEATHER done today, compared to last visit, improvement. Plan: Cont paxil 10mg, goal would be to stay on w/ controlled sx for 1 year. Day 1 today. Offered treatment for hot flashes, declined at this time. FU in 3-4 months for CPE, sooner PRN This note is constructed using voice recognition software. While every effort has been made to ensure accuracy in ecological economist, still errors may have been included Sometimes, these errors may affect the content or meaning of the given sentence . Total time spent caring for the patient today was 12 minutes. This includes time spent before the visit reviewing the chart, time spent during the visit, and time spent after the visit on documentation [facility] Medical History (Updated 03/27/24 @ 13:45 by KIEL Albarran) Diverticulitis Breast cancer Surgical History (Updated 03/27/24 @ 13:45 by KIEL Albarran) Status post embolization of uterine artery History of appendectomy Family History (Updated 03/27/24 @ 08:14 by Vida Law MA) Father Substance abuse Alcoholic Paternal Grandfather Hypertension High cholesterol Diabetes Cardiovascular disease Mother Thyroid cancer Social History (Updated 03/27/24 @ 08:14 by Vida Law MA) Household Members: Spouse and Children Both parents involved: No Caregiver staying overnight: No Housing: House Are you a primary geriatric care manager to a significant other at home: No Do you presently have visiting nurse or other home services: No 75 years or older and lives alone: No Alcohol intake: current Alcohol intake frequency: a few times a month Alcohol type: wine Patient Tobacco Use Status: Never used Tobacco e-Cigarette/Vaping Use: Never Used service: No Current occupational status: employed 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 1. Little interest or pleasure in doing things: more than half the days 2. Feeling down, depressed, or hopeless: several days 3. Trouble falling or staying asleep, or sleeping too much: more than half the days 4. Feeling tired or having little energy: not at all 5. Poor appetite or overeating: not at all 6. Feeling bad about yourself - or that you are a failure or have let yourself or your family down: several days 7. Trouble concentrating on things, such as reading the newspaper or watching television: several days 8. Moving or speaking so slowly that other people could have noticed. Or the opposite - being so fidgety or restless that you have been moving around a lot more than usual: not at all 9. Thoughts that you would be better off or of hurting yourself in some way: not at all Total score: 7 Depression Screening Interpretation: Positive Depression Screening Follow-up: Existing condition and In treatment Depression Screening Done: Yes 30068 - PHQ-9 Billing: Yes Source: Developed by Drs. Tera Miller, Bola Almendarez and colleagues, with an educational jagruti from [employer]. Thrive Questionnaire Date Thrive assessed: 03/27/24 HEATHER-7 AMB Questionnaire HEATHER-7 Date HEATHER - 7 assessed: 05/06/24 Feeling nervous, anxious, or on edge: 1 = Several days Not being able to stop or control worryin = Several days Worrying too much about different things: 1 = Several days Trouble relaxin = Several days Being so restless that it is hard to sit still: 1 = Several days Becoming easily annoyed or irritable: 1 = Several days Feeling afraid as if something awful might happen: 1 = Several days Total HEATHER-7 score (0-4 normal; 5-9 mild; 10-14 moderate; 15-21 severe): 7 Source: Developed by Drs. Tera Miller, Bola Almendarez and colleagues, with an educational jagruti from [employer]. HEATHER-7 Assessment Billing HEATHER-7 Assessment Tool: HEATHER-7 Assessment 72454 Physical exam (Primary Care) Tobacco/Smoking Status: Tobacco use Status Tobacco use date assessed 03/27/24 05/06/24 08:36 Patient Tobacco Use Status Never used Tobacco 05/06/24 08:36 e-Cigarette/Vaping Use Never Used 05/06/24 08:36 PHQ-9: PHQ-9 Score PHQ-9: Total score 7 05/06/24 08:39 Depression Screening Interpretation: Positive Depression Screening Follow-up: Existing condition and In treatment Thrive Assessment: Date of Thrive Assessment Date Thrive assessed 03/27/24 05/06/24 08:36 Telehealth Telehealth Telehealth Platform: Telephone Location of provider rendering services: practice address Location of patient: address on file Patient Identification confirmed using: Name, : Yes Telehealth method: voice only Patient verbally consented to treatment: Yes Patient verbally consented to billing insurance company: Yes Patient informed of any privacy concerns related to visit: Yes Minutes spent on Phone/Video with Pt.: 9 Coding Level of Care Code Tele Est Pt Level 2 (24457) Complex EM visit Add On G2211 Diagnoses HEATHER (generalized anxiety disorder) F41.1 Mild episode of recurrent major depressive disorder F33.0 Major depression episode severity: mild Perimenopause N95.1 Additional Codes HEATHER-7 Assessment Billing - HEATHER-7 Assessment Tool: HEATHER-7 Assessment 88231 ([id number]) Assessment & Plan Assessment & Plan (1) HEATHER (generalized anxiety disorder): Code(s): F41.1 - Generalized anxiety disorder Category: Medical Plan: . (2) MDD (major depressive disorder), recurrent episode: Code(s): F33.9 - Major depressive disorder, recurrent, unspecified Category: Medical Qualifiers: Major depression episode severity: mild Qualified Code(s): F33.0 - Major depressive disorder, recurrent, mild Plan: . (3) Perimenopause: Code(s): N95.1 - Menopausal and female climacteric states Category: Medical Plan: . Plan . Medications: Refilled paroxetine HCl (Paxil) 10 mg PO DAILY 90 tabs 1RF
== END 2024-05-06 08:43 | disposition home or self-care (01) ==
LOC: HO.HMCFM 08:37
PROVIDERS: PCP Nurse Practitioner Family; Visit Provider Nurse Practitioner Family
DX: F41.1 Generalized anxiety disorder (principal); F33.0 Major depressive disorder, recurrent, mild; N95.1 Menopausal and female climacteric states

== ENCOUNTER → 2024-05-06 08:37 | Outpatient (BNVA) | payer OTHER, SELFPAY | PROVIDERS: PCP Nurse Practitioner Family; Visit Provider Nurse Practitioner Family | DX: F41.1 Generalized anxiety disorder (principal); F33.0 Major depressive disorder, recurrent, mild; N95.1 Menopausal and female climacteric states | CPT/HCPCS: 96127 ==

== ENCOUNTER → 2024-08-22 08:52 | Outpatient (AMB) | payer OTHER, SELFPAY ==
--- OUTSIDE RECORDS SUMMARY | 2024-08-22 09:09 | XMS_ITS | Clinical Summary ---
Author Organization [facility] Address [address] [place] [address] Phone Care Team Providers Care Cna Caregiver Name Role Phone eF Reid Primary Care Provider Allergies Active Allergy Reactions Criticality Noted Date Comments Sulfamethoxazole-Trimethoprim Swelling 2020 Medications Medication Sig Dispensed Refills Start Date End Date Status multivitamin with minerals (MULTIPLE VITAMIN-MINERALS ORAL) Take by mouth. Active calcium carbonate-vitamin D3 1,000 mg-20 mcg (800 unit) tablet Take by mouth. Active Lactobacillus acidophilus (PROBIOTIC ACIDOPHILUS ORAL) Take by mouth. Active Active Problems Problem Noted Date Diagnosed Date Hypercholesteremia 09/04/2020 Overview (07/08/2024): Summer 2019 LDL ~190 per her report Encounters Date Type Department Care Team Description 07/29/2024 7:44 AM EST - 07/29/2024 11:59 PM EST [facility] [address] [place] [address] Encounter for screening mammogram for breast cancer Discharge Disposition: Home or Self Care from Last 3 Months Immunizations Name Administration Dates Next Due Influenza trivalent, 0.5mL, preservative free (Fluarix; FluLaval; Fluzone) ages 6mo and older (Afluria) 3 years and older 04/14/2020,05/01/2019,04/27/2018,2016 Influenza, Unspecified 04/19/2022 Tdap Tetanus diptheria acell ular pertussis (Boostrix; Adacel) 7yo and older 12/22/2016 Surgical History Surgery Date Site/Laterality Comments BREAST LUMPECTOMY 2012 Left PROCEDURE: HISTORICAL BREAST LUMPECTOMY; COMMENT: DCIS OTHER SURGICAL HISTORY PROCEDURE: ---- OTHER ----; COMMENT: AVM uterine artery, 3 spots clipped. OTHER SURGICAL HISTORY PROCEDURE: ---- OTHER ----; COMMENT: myomectomy OTHER SURGICAL HISTORY PROCEDURE: ---- OTHER ----; COMMENT: uterine peritoneal fistula repair STEREOTACTIC CORE BIOPSY Bilateral Medical History Medical History Date Comments Breast cancer (CMS/HCC) LEFT BRCA1 gene mutation negative BRCA2 gene mutation negative Family History Medical History Relation Name Comments Neurofibromatosis Brother type II No Known Problems Daughter Liver cancer Father Diabetes Father's side type 2 Hypertension Father's side Other: postoperative hypothyroidism Mother Other: thyroid cancer Mother dx age 37 Diabetes Paternal Grandfather Relation Name Status Comments Brother Alive Daughter Alive Father Father's side Mother Alive Paternal Grandfather Social History Tobacco Use Types Packs/Day Years Used Date Smoking Tobacco: Never Smokeless Tobacco: Never Alcohol Use Standard Drinks/Week Comments Yes 0 (1 standard drink = 0.6 oz pur e alcohol) Sex and Gender Information Value Date Recorded Sex Assigned at Not on file Gender Identity Not on file Sexual Orientation Not on file Job Start Date Occupation Industry Not on file Not on file Not on file Obstetrics History Last Filed Vital Signs Vital Sign Reading Time Taken Comments Blood Pressure 140/86 08/30/2022 1:31 PM EST Pulse 87 08/30/2022 1:31 PM EST Temperature - - Respiratory Rate - - Oxygen Saturation - - Inhaled Oxygen Concentration - - Weight 70.3 kg (155 lb) 07/29/2024 7:58 AM EST Height 167.6 cm (5' 6 ) 07/29/2024 7:58 AM EST Body Mass Index 25.02 07/29/2024 7:58 AM EST Plan of Treatment Health Maintenance Due Date Last Done Comments Pneumococcal Vaccine: Pediatrics (0 to 5 Years) and At-Risk Patients (6 to 64 Years) (1 of 2 - PCV) 1980 Hepatitis B Vaccines (1 of 3 - 19+ 3-dose series) 1993 Cervical Cancer Screening: Pap Smear 1995 Colorectal Cancer Screening: Colonoscopy 06/25/2022 Depression Screening 06/25/2022 HIV Screening 06/25/2022 Hepatitis C Screening 06/25/2022 Social Influencers of Health Screening 06/25/2022 COVID-19 Vaccine (4 - season) 2024 04/13/2021, 07/24/2020, 07/03/2020 Breast Cancer Screening 07/29/2026 07/29/19, 07/26/2023, 07/20/2022, Additional history exists DTaP,Tdap,and Td Vaccines (4 - Td or Tdap) 12/22/2026 12/22/2016, 11/11/2016, 07/02/2001 Cholesterol Screening (Lipid Panel) 08/30/2027 08/30/2022 MMR Vaccines Aged Out 10/30/2001, 07/02/2001 No lo nger eligible based on patient's age to complete this topic Influenza Vaccine Completed 04/18/2024, , 04/19/2022, Additional history exists HIB Vaccines Aged Out No longer eligi ble based on patient's age to complete this topic HPV Vaccines Aged Out No longer eligi ble based on patient's age to complete this topic Hepatitis A Vaccines Aged Out No long er eligible based on patient's age to complete this topic IPV Vaccines Aged Out No longer eligi ble based on patient's age to complete this topic Meningococcal ACWY Vaccine Aged Out N o longer eligible based on patient's age to complete this topic RSV Immunization Patients Under 20 months Aged Out No longer eligible based on patient's age to complete this topic Varicella Vaccines Aged Out No longer eligible based on patient's age to complete this topic Procedures Procedure Name Priority Date/Time Associated Diagnosis Comments MG MAMMO DIGITAL SCREENING W MARCIN BILAT Routine 07/29/2024 8:08 AM EST Encounter for screening mammogram for breast cancer LIPID PANEL Routine 08/30/2022 from Last 3 Months or Most Recently Relevant to Health Maintenance Results * MG Mammo Digital Screening w Marcin bilat (07/29/2024 8:08 AM EST) Anatomical Region Laterality Modality Breast Bilateral Mammography 07/29/2024 10:4 1 AM EST Impressions 07/29/2024 10:50 AM EST No mammographic evidence of new or recurrent malignancy. ?? No suspicious interval change. A negative mammogram in the presence of a clinically suspicious palpable abnormality does not preclude the possibility of malignancy or alter the indications for biopsy. ASSESSMENT: ?? BI-RADS 2: BENIGN RECOMMENDATION(S): 1: Routine screening mammogram BILATERAL in 1 year. -------- FINAL REPORT -------- Dictated By: Dedrick Buckley Dictated Date: 07/29/2024 10:41 ET Assigned Physician: Dedrick Buckley Reviewed and Electronically Signed By: Dedrick Buckley Signed Date: 07/29/2024 10:50 ET Workstation ID: [id number] Transcribed By: Self Edit Transcribed Date: 07/29/2024 10:41 ET Narrative 07/29/2024 10:50 AM EST EXAM: ??SCREENING MAMMOGRAPHY, BILATERAL HISTORY: ??SCREENING. ??Personal history of left breast cancer. ??Left lumpectomy 2011 COMPARISON: ??07/26/2023, 07/20/2022, 07/12/2021, 07/08/2020 TECHNIQUE: Synthesized CC and MLO projections of each breast. ??Tomosynthesis of each breast in the CC and MLO projections. ADDITIONAL IMAGING: None Computer-aided detection was employed with the iCAD ??profound AI 3-D. TISSUE DENSITY: The breasts are heterogeneously dense, which may obscure small masses. (BI-RADS category C) FINDINGS: RIGHT BREAST: No suspicious mass. No suspicious calcification. No distortion. ?? A biopsy site marker in the deep central right breast close to the chest wall is seen only in the craniocaudal view. LEFT BREAST: There is distortion at the site of lumpectomy. ??There are a few stable calcifications in the lower inner left breast. There is no new suspicious left breast finding Procedure Note Dedrick Buckley MD - 07/29/2024 EXAM: SCREENING MAMMOGRAPHY, BILATERAL HISTORY: SCREENING. Personal history of left breast cancer. Leftlumpectomy 2011 COMPARISON: 07/26/2023, 07/20/2022, 07/12/2021, 07/08/2020 TECHNIQUE: Synthesized CC and MLO projections of each breast.Tomosynthesis of each breast in the CC and MLO projections. ADDITIONAL IMAGING: None Computer-aided detection was employed with the iCAD [employer] AI 3-D. TISSUE DENSITY: The breasts are heterogeneously dense, which may obscuresmall masses. (BI-RADS category C) FINDINGS: RIGHT BREAST: No suspicious mass. No suspicious calcification. No distortion. A biopsy site marker in the deep central right breast close to the chestwall is seen only in the craniocaudal view. LEFT BREAST: There is distortion at the site of lumpectomy. There are a few stablecalcifications in the lower inner left breast. There is no new suspicious left breast finding IMPRESSION: No mammographic evidence of new or recurrent malignancy. No suspicious interval change. A negative mammogram in the presence of a clinically suspicious palpableabnormality does not preclude the possibility of malignancy or alter theindications for biopsy. ASSESSMENT: BI-RADS 2: BENIGN RECOMMENDATION(S): 1: Routine screening mammogram BILATERAL in 1 year. -------- FINAL REPORT -------- Dictated By: Dedrick Buckley Dictated Date: 07/29/2024 10:41 ET Assigned Physician: Dedrick Buckley Reviewed and Electronically Signed By: Dedrick Buckley Signed Date: 07/29/2024 10:50 ET Workstation ID: [id number] Transcribed By: Self Edit Transcribed Date: 07/29/2024 10:41 ET Self Referral [facility] IMG BI PROCEDURES * (ABNORMAL) Lipid panel (08/30/2022) LDL/HDL Ratio 4 0 - 4 Triglycerides 100 0 - 150 mg/dL Cholesterol 190 0 - 200 mg/dL HDL 50 40 mg/dL LDL Cholesterol 120(A) 0 - 100 mg/dL Blood Venous blood specimen / Unknown Historical Provider LAB BLOOD ORDERAB LES from Last 3 Months or Most Recently Relevant to Health Maintenance Advance Directives Documents on File Type Date Recorded Patient Branch General Manager Expl anation Health Care Decision (hx) 10/02/2009 AD GREEN DIRECTIVE Health Care Decision (hx) 10/02/2009 AD GREEN DIRECTIVE Health Care Decision (hx) 10/02/2009 AD GREEN DIRECTIVE Health Care Decision (hx) 10/02/2009 AD GREEN DIRECTIVE Health Care Decision (hx) 10/02/2009 AD GREEN DIRECTIVE Health Care Decision (hx) 10/02/2009 AD GREEN DIRECTIVE Health Care Decision (hx) 10/02/2009 AD GREEN DIRECTIVE Health Care Decision (hx) 10/02/2009 AD GREEN DIRECTIVE Health Care Decision (hx) 10/02/2009 AD GREEN DIRECTIVE Health Care Decision (hx) 10/02/2009 AD GREEN DIRECTIVE Health Care Decision (hx) 10/02/2009 AD GREEN DIRECTIVE Health Care Decision (hx) 10/02/2009 AD GREEN DIRECTIVE Health Care Decision (hx) 10/02/2009 AD GREEN DIRECTIVE Health Care Decision (hx) 10/02/2009 AD GREEN DIRECTIVE Health Care Decision (hx) 10/02/2009 AD GREEN DIRECTIVE Health Care Decision (hx) 10/02/2009 AD GREEN DIRECTIVE Health Care Decision (hx) 10/02/2009 AD GREEN DIRECTIVE Care Teams Cna Caregiver Relationship Specialty Start Date End Date Fe Reid FNP [address] [place] [address] Dr Fernandez [address] [place] [phone] PCP - General Nurse Practitioner 07/15/24
--- OUTSIDE RECORDS SUMMARY | 2024-08-22 09:09 | XMS_ITS | Encounter Summary ---
Author Organization [facility] Address [address] [place] [address] Care Team Providers Care Malted Milk Supervisor Name Role Phone BrandyZohraLuis E Fe SHERMAN Primary Care Provider Reason for Referral * Imaging (Routine) - Closed Specialty Diagnoses / Procedures Referred By Contac t Referred To Contact Radiology Diagnoses Encounter for screening mammogram for breast cancer Procedures MG Mammo Digital Screening w Marcin bilat [facility], Self Referral [facility] Referral ID Status Reason Start Date Expiration Date Visits Re quested Visits Authorized [id number] Closed 07/15/2024 07/15/2025 1 1 * Imaging (Routine) - Closed Specialty Diagnoses / Procedures Referred By Contac t Referred To Contact Radiology Diagnoses Encounter for screening mammogram for breast cancer Procedures MG Mammo Digital Screening w Marcin bilat [facility], Self Referral [facility] Referral ID Status Reason Start Date Expiration Date Visits Re quested Visits Authorized [id number] Closed 07/15/2024 07/15/2025 1 1 Reason for Visit * Imaging (Routine) - Closed Specialty Diagnoses / Procedures Referred By Contac t Referred To Contact Radiology Diagnoses Encounter for screening mammogram for breast cancer Procedures MG Mammo Digital Screening w Marcin bilat [facility], Self Referral [facility] Referral ID Status Reason Start Date Expiration Date Visits Re quested Visits Authorized [id number] Closed 07/15/2024 07/15/2025 1 1 Encounter Details Date Type Department Care Team (Latest Contact Info) Description 07/29/2024 7:44 AM EST - 07/29/2024 11:59 PM EST [facility] [address] [address] Encounter for screening mammogram for breast cancer Discharge Disposition: Home or Self Care Social History Tobacco Use Types Packs/Day Years [...] file Not on file Not on file documented as of this encounter Last Filed Vital Signs Vital Sign Reading Time Taken Comments Blood Pressure - - Pulse - - Temperature - - Respiratory Rate - - Oxygen Saturation - - Inhaled Oxygen Concentration - - Weight 70.3 kg (155 lb) 07/29/2024 7:58 AM EST Height 167.6 cm (5' 6 ) 07/29/2024 7:58 AM EST Body Mass Index 25.02 07/29/2024 7:58 AM EST documented in this encounter Medications at Time of Discharge Medication Sig Dispensed Refills Start Date End Date calcium carbonate-vitamin D3 1,000 mg-20 mcg (800 unit) tablet Take by mouth. Lactobacillus acidophilus (PROBIOTIC ACIDOPHILUS ORAL) Take by mouth. multivitamin with minerals (MULTIPLE VITAMIN-MINERALS ORAL) Take by mouth. documented as of this encounter Discharge Disposition Disposition Code Departure Means Destination Home or Self Care documented in this encounter Plan of Treatment Not on file documented as of this encounter Procedures Procedure Name Priority Date/Time Associated Diagnosis Comments MG MAMMO DIGITAL SCREENING W MARCIN BILAT Routine 07/29/2024 8:08 AM EST Encounter for screening mammogram for breast cancer documented in this encounter Results * MG Mammo Digital Screening w [...] Signed Date: 07/29/2024 10:50 ET Workstation ID: [id number] Transcribed By: Self Edit Transcribed Date: 07/29/2024 [...] Computer-aided detection was employed with the iCAD profound AI 3-D. TISSUE DENSITY: The breasts are [...] Signed Date: 07/29/2024 10:50 ET Workstation ID: [id number] Transcribed By: Self Edit Transcribed Date: 07/29/2024 10:41 ET Self Referral [facility] IMG BI PROCEDURES documented in this encounter Visit Diagnoses Diagnosis Encounter for screening mammogram for breast cancer documented in this encounter Care Teams Malted Milk Supervisor Relationship Specialty Start Date End Date Fe Reid FNP [address] [place] [address] [place] [phone] PCP - General Nurse Practitioner 07/15/24 documented as of this encounter
--- NOTE | 2024-08-22 10:45 | A.OFFPC_ITS ---
Vital Signs 08/22/24 12:11 Height 5 ft 6 in Weight 155 lb BMI 25.0 BP 130/70 Blood Pressure Location Rt brachial Intake Visit Reasons: CPE Allergies sulfamethoxazole [From BACTRIM] Allergy (Unknown, Verified 08/22/24 12:04) SWELLING trimethoprim [From BACTRIM] Allergy (Unknown, Verified 08/22/24 12:04) SWELLING Medication List - Last Reconciled 08/22/24 by Fe Reid, ANNOUNCER- paroxetine HCl (Paxil) 10 mg PO DAILY Tobacco use date assessed: 08/22/24 Dental Screening Dental Screen Date: 08/22/24 Did you have a dental visit in the last 12 months?: Yes Did you have a dental problem in the last 6 months where you did not have access to dental care?: No Was dental information given to patient?: Patient has dentist HPI HPI Comments History of Present Illness Details TELEVIDEO VIA NETpeas 48-year-old female with 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 Colon 2020 done at [facility], repeat 10 years -- record needed ? Mammo UTD ? DEXA n/a ? PAP UTD ? Tdap 12/22/16, Flu 04/2024 at work, Shingles 09/2024 Specialists: EPIC ANESTHESIA ANALYST [facility] EPIC ANESTHESIA ANALYST [facility]. Counseling has not found right fit yet, cont to work on this. Optho wears glasses 06/2023 will get one 2024 Derm annual skin checks Visit today for CPE: She feels great overall. DCIS L breast cancer status post lumpectomy 2019 UTD on Mammo HEATHER and MDD managed well controlled Paxil 10 mg. History of diverticulitis. No recent abdominal complaints. Colonoscopy is up-to-date. Reports required. She will get this for me to review She is up-to-date on her mammogram, Pap smear She is due for shingles vaccinations and we will get these next month Perimenopausal with hot flashes. Wonders about FSH testing Labs UTD & at goal Exercises. Monitors Wt/Bp/P at home. BP on average 130/70 reports normal HR except when working out. Track w/ apple watch Exam limited by video: Awake alert, smiling, engaging Wearing glasses MMM Speaking in full sentences Plan: Cristel silva Provided info for [facility] Get Shingles at pharmacy Provide Colon 2020 report Discouraged FSH testing @ this time RTO 6 months for HEATHER fu, sooner prn PFSH Medical History Breast cancer Diverticulitis Surgical History History of appendectomy Status post embolization of uterine artery Family History Father Substance abuse Alcoholic Paternal Grandfather Hypertension High cholesterol Diabetes Cardiovascular disease Mother Thyroid cancer Social History Household Members: Spouse and Children Both parents involved: No Caregiver staying overnight: No Housing: House Are you a primary rn primary care to a significant other at home: No Do you presently have visiting nurse or other home services: No 75 years or older and lives alone: No Alcohol intake: current Alcohol intake frequency: a few times a month Alcohol type: wine Patient Tobacco Use Status: Never used Tobacco e-Cigarette/Vaping Use: Never Used service: No Current occupational status: employed 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 1. Little interest or pleasure in doing things: not at all 2. Feeling down, depressed, or hopeless: not at all 3. Trouble falling or staying asleep, or sleeping too much: not at all 4. Feeling tired or having little energy: not at all 5. Poor appetite or overeating: not at all 6. Feeling bad about yourself - or that you are a failure or have let yourself or your family down: not at all 7. Trouble concentrating on things, such as reading the newspaper or watching television: not at all 8. Moving or speaking so slowly that other people could have noticed. Or the opposite - being so fidgety or restless that you have been moving around a lot more than usual: not at all 9. Thoughts that you would be better off or of hurting yourself in some way: not at all Total score: 0 Depression Screening Interpretation: Negative Depression Screening Done: Yes 76519 - PHQ-9 Billing: Yes Source: Developed by Drs. Tera Miller, Ksenia English, Bola Montiel and colleagues, with an educational jagruti from [employer]. Thrive Questionnaire Date Thrive assessed: 08/19/24 I am a: Patient What is your living situation today?: I have a steady place to live Within the past 12 months, did the food you bought not last and you didn't have the money to get more?: Never true Do you have trouble paying for medicines?: No Do you have trouble getting transportation to medical appointments?: No Do you have trouble paying your heating and electricity bill?: No Do you have trouble taking care of your child, family member or friend?: No Do you have trouble with day-to-day activities such as bathing, preparing meals, shopping, managing finances, etc.?: No Are you currently unemployed and looking for a job?: No Are you interested in more education?: No Currently or been in a relationship where the following occur: No concerns reported THRIVE Score: 0 AUDIT C Alcohol Use Questionnaire (AUDIT-C) 1. How often do you have a drink containing alcohol?: Monthly or less 2. How many drinks containing alcohol do you have on a typical day when you are drinking?: 1 or 2 3. How often do you have six or more drinks on one occasion?: Never Total Score: 1 Score Reviewed/Action Taken: Yes HEATHER-7 AMB Questionnaire HEATHER-7 Date HEATHER - 7 assessed: 08/22/24 Feeling nervous, anxious, or on edge: 0 = Not at all Not being able to stop or control worryin = Not at all Worrying too much about different things: 0 = Not at all Trouble relaxin = Not at all Being so restless that it is hard to sit still: 0 = Not at all Becoming easily annoyed or irritable: 0 = Not at all Feeling afraid as if something awful might happen: 0 = Not at all Total HEATHER-7 score (0-4 normal; 5-9 mild; 10-14 moderate; 15-21 severe): 0 Source: Developed by Drs. Tera Miller, Ksenia English, Bola Montiel and colleagues, with an educational jagruti from [employer]. HEATHER-7 Assessment Billing HEATHER-7 Assessment Tool: HEATHER-7 Assessment 85076 Physical exam (Primary Care) Tobacco/Smoking Status: Tobacco use Status Tobacco use date assessed 08/22/24 08/22/24 10:46 Patient Tobacco Use Status Never used Tobacco 08/22/24 10:46 e-Cigarette/Vaping Use Never Used 08/22/24 10:46 Depression Screening Interpretation: Negative Thrive Assessment: Date of Thrive Assessment Date Thrive assessed 08/19/24 08/22/24 10:46 Currently or been in a relationship where the following occur: No concerns reported Telehealth Telehealth [facility] Location of provider rendering services: practice address Location of patient: address on file Patient Identification confirmed using: Name, : Yes Telehealth method: video Patient verbally consented to treatment: Yes Patient verbally consented to billing insurance company: Yes Patient informed of any privacy concerns related to visit: Yes Minutes spent on Phone/Video with Pt.: 12 Coding Level of Care Code Est Pt Prev Care 40-64y(53585) Diagnoses Encounter for general adult medical examination without abnormal findings Z00.00 Ductal carcinoma in situ (DCIS) of left breast D05.12 HEATHER (generalized anxiety disorder) F41.1 Liver lesion K76.9 Mild episode of recurrent major depressive disorder F33.0 Major depression episode severity: mild Perimenopause N95.1 Additional Codes HEATHER-7 Assessment Billing - HEATHER-7 Assessment Tool: HEATHER-7 Assessment 41665 ([id number]) PHQ-9 - 02468 - PHQ-9 Billing: Yes ([id number]) Assessment & Plan Assessment & Plan (1) Encounter for general adult medical examination without abnormal findings: Code(s): Z00.00 - Encounter for general adult medical examination without abnormal findings Category: Medical (2) Ductal carcinoma in situ (DCIS) of left breast: Comment: dx age 36 in full remission, s/p lumpectomy Code(s): D05.12 - Intraductal carcinoma in situ of left breast Category: Medical (3) HEATHER (generalized anxiety disorder): Code(s): F41.1 - Generalized anxiety disorder Category: Medical (4) Liver lesion: Code(s): K76.9 - Liver disease, unspecified Category: Medical (5) MDD (major depressive disorder), recurrent episode: Code(s): F33.9 - Major depressive disorder, recurrent, unspecified Category: Medical Qualifiers: Major depression episode severity: mild Qualified Code(s): F33.0 - Major depressive disorder, recurrent, mild (6) Perimenopause: Code(s): N95.1 - Menopausal and female climacteric states Category: Medical Plan . Medications: Refilled paroxetine HCl (Paxil) 10 mg PO DAILY 90 tabs 1RF Patient Instructions: Health screenings for women You should visit your health care provider from time to time, even if you are healthy. The purpose of these visits is to: Screen for medical issues Assess your risk for future medical problems Encourage a healthy lifestyle Update vaccinations and other preventive care services Help you get to know your provider in case of an illness Information Even if you feel fine, you should still see your provider for regular checkups. These visits can help you avoid problems in the future. For example, the only way to find out if you have high blood pressure is to have it checked regularly. High blood sugar and high cholesterol levels also may not have any symptoms in the early stages. A simple blood test can check for these conditions. There are specific times when you should see your provider or receive specific health screenings. The [place] Preventive Services Task Force publishes a list of recommended screenings. Below are screening guidelines for women ages 18 to 39. BLOOD PRESSURE SCREENING Your blood pressure should be checked at least once every 3 to 5 years if: Your blood pressure is in the normal range (top number less than 120 mm Hg and bottom number less than 80 mm Hg) You don't have risk factors for high blood pressure Ask your provider if you need your blood pressure checked more often if: The top number is 120 to 129 mm Hg or the bottom number is 70 to 79 mm Hg You have diabetes, heart disease, kidney problems, are overweight, or have certain other health conditions You have a first-degree relative with high blood pressure You are Black You had high blood pressure during a If the top number is 130 mm Hg or greater or the bottom number is 80 mm Hg or greater, this is considered stage 1 hypertension. Schedule an appointment with your provider to learn how you can reduce your blood pressure. Watch for blood pressure screenings in your area. Ask your provider if you can stop in to have your blood pressure checked. BREAST CANCER SCREENING Experts do not agree about the benefits of breast self-exams in finding breast cancer or saving lives. Talk to your provider about what is best for you. A screening mammogram is not recommended for most women under age 40. Your provider may discuss and recommend mammograms, MRI scans, or ultrasounds if you have an increased risk for breast cancer, such as: A mother or sister who had breast cancer at a young age (most often starting screening earlier than the age the close relative was diagnosed) You carry a high-risk genetic marker CERVICAL CANCER SCREENING Cervical cancer screening should start at age 21 years unless your provider advises otherwise. After the first test: Women ages 21 through 29 should have a Pap test every 3 years. Exoprts do not agree on whether HPV testing is recommended for this age group. Women ages 30 through 65 should be screened with either a Pap test every 3 years or the HPV test every 5 years or both tests every 5 years (called cotesting ). Women who have been treated for precancer (cervical dysplasia) should continue to have Pap tests for 20 years after treatment or until age 65, whichever is longer. If you have had your uterus and cervix removed (total hysterectomy), and you have not been diagnosed with cervical cancer or precancer (high grade cervical neoplasia), you do not need cervical cancer screening. CHOLESTEROL SCREENING Cholesterol screening should begin at: Age 45 for women with no known risk factors for coronary heart disease Age 20 for women with known risk factors for coronary heart disease Repeat cholesterol screening should take place: Every 5 years for women with normal cholesterol levels More often if changes occur in lifestyle (including weight gain and diet) More often if you have diabetes, heart disease, kidney problems, or certain other conditions DIABETES SCREENING You should be screened for diabetes starting at age 35 and then repeated every 3 years if you have no risk factors for diabetes. Screening may need to start earlier and be repeated more often if you have other risk factors for diabetes, such as: You have a first degree relative with diabetes. You are overweight or have obesity. You have high blood pressure, prediabetes, or a history of heart disease. Screening for diabetes should be done if you are planning to become and you are overweight and have other risk factors such as high blood pressure. DENTAL EXAM Go to the dentist once or twice every year for an exam and cleaning. Your dentist will evaluate if you need more frequent visits. EYE EXAM Have an eye exam every 5 to 10 years before age 40. If you have vision problems, have an eye exam every 2 years or more often if recommended by your provider. You should have an eye exam that includes an examination of your retina (back of your eye) at least every year if you have diabetes. IMMUNIZATIONS Commonly needed vaccines include: Flu shot: get one every year. COVID-19 vaccine: ask your provider what is best for you. Tetanus-diphtheria and acellular pertussis (Tdap) vaccine: have one at or after age 19 as one of your tetanus-diphtheria vaccines if you did not receive it as an adolescent. Tetanus-diphtheria: have a booster (or Tdap) every 10 years. Varicella vaccine: receive 2 doses if you never had chickenpox or the varicella vaccine. Hepatitis B vaccine: receive 2, 3, or 4 doses, depending on your exact circumsta nces. Measles, mumps, and rubella (MMR) vaccine: receive 1 to 2 doses if you are not already immune to MMR. Your provider can tell you if you are immune. Ask your provider about the human papillomavirus (HPV) vaccine if: You have not received the HPV vaccine in the past You have not completed the full vaccine series (you should catch up on this shot) Ask your provider if you should receive other immunizations if you have certain health problems that increase your risk for some diseases such as pneumonia. INFECTIOUS DISEASE SCREENING Women who are sexually active should be screened for chlamydia and gonorrhea up until age 25. Women 25 years and older should be screened for chlamydia and gonorrhea if at high risk. Screening for hepatitis C: All adults ages 18 to 79 should get a one-time test for hepatitis C. people should be screened at every . Screening for human immunodeficiency virus (HIV): All people ages 15 to 65 should get a one-time test for HIV. Depending on your lifestyle and medical history, you may also need to be screened for infections such as syphilis and HIV, as well as other infections. PHYSICAL EXAM All adults should visit their provider from time to time, even if they are healthy. The purpose of these visits is to: Screen for disease Assess your risk of future medical problems Encourage a healthy lifestyle Update your vaccinations and other preventive care services Maintain a relationship with a provider in case of an illness Your height, weight, and BMI should be checked at every exam. During your exam, your provider may ask you about: Depression and anxiety Diet and exercise Alcohol and tobacco use Safety issues, such as using seat belts, smoke detectors, and intimate partner violence Your medicines and risk for interactions SKIN SELF-EXAM Your provider may check your skin for signs of skin cancer, especially if you're at high risk, such as if you: Have had skin cancer before Have close relatives with skin cancer Have a weakened immune system OTHER SCREENING Talk with your provider about colon cancer screening if you have a strong family history of colon cancer or polyps, or if you have had inflammatory bowel disease or polyps yourself. Routine bone density screening of women under 40 is not recommended.
== END | disposition home or self-care (01) ==
PROVIDERS: PCP Nurse Practitioner Family; Visit Provider Nurse Practitioner Family

== ENCOUNTER → 2024-08-22 08:52 | Outpatient (BNVA) | payer OTHER, SELFPAY | PROVIDERS: PCP Nurse Practitioner Family; Visit Provider Nurse Practitioner Family | DX: Z00.00 Encounter for general adult medical examination without abnormal findings (principal); D05.12 Intraductal carcinoma in situ of left breast; F41.1 Generalized anxiety disorder; K76.9 Liver disease, unspecified; F33.0 Major depressive disorder, recurrent, mild; N95.1 Menopausal and female climacteric states; Z79.899 Other long term (current) drug therapy | CPT/HCPCS: 96127 ==

== ENCOUNTER 2025-05-28 11:26 | Outpatient (AMB) | payer OTHER, SELFPAY ==
--- NOTE | 2025-05-28 11:21 | AM.OFFVISNUR ---
Intake Visit Reasons: flu shot Allergies sulfamethoxazole (From BACTRIM) Allergy (Unknown, Verified 08/22/24 12:04) SWELLING trimethoprim (From BACTRIM) Allergy (Unknown, Verified 08/22/24 12:04) SWELLING Office Procedures Flu Questionnaire Does the patient have a severe egg allergy?: No Does the patient have severe life threatening allergies?: No Does the patient have a fever or illness today?: No Has the patient ever had Guillain-[place] Syndrome?: No Has the patient ever had any past reaction to a flu shot?: No Immunizations Fluarix [id number] (PF) 45 mcg (15 mcg x 3)/0.5 mL IM syringe Performing Provider: KIEL Albarran Performing Location: [facility] Administered by: Sebastian Moreno RN on 05/28/25 11:22 Dose Route Admin Location Dispensed Lot Number Expiration Date NDC [place] 0.5 mL IM Left Deltoid 0.5 mL [id number] 01/13/26 [id number] [facility] V[facility] Given Date VIS Provided VIS Publication Date 05/28/25 Single Vaccine 24 Eligibility Eligibility Date Funding Source Not [facility] Eligible 05/28/25 Private Assessment & Plan Assessment & Plan Orders: Orders Influenza [id number] Immunization Today Z23 - Encounter for immunization Coding
--- OUTSIDE RECORDS SUMMARY | 2025-05-28 14:14 | XMS_ITS | Clinical Summary ---
Author Organization [facility] Address [address] [place] [address] Phone Care Team Providers Care Senior Engineering Technician Name Role Phone Fe Reid Primary Care Provider Allergies Active Allergy Reactions Criticality Noted Date Comments Sulfamethoxazole-Trimethoprim Swelling 2020 Medications multivitamin with minerals (MULTIPLE VITAMIN-MINERALS ORAL) Take by mouth. Active calcium carbonate-vitamin D3 1,000 mg-20 mcg (800 unit) tablet Take by mouth. Active Lactobacillus acidophilus (PROBIOTIC ACIDOPHILUS ORAL) Take by mouth. Active Active Problems Problem Noted Date Diagnosed Date Hypercholesteremia 09/04/2020 Overview (07/08/2024): Summer 2019 LDL ~190 per her report Immunizations Immunization Administration Dates Next Due Influenza trivalent, 0.5mL, [...] History Medical History Date Comments Breast cancer (CMS/HCC V24, CMS/HCC V28) LEFT BRCA1 gene mutation negative BRCA2 gene [...] drink = 0.6 oz pur e alcohol) Comments No Sex and Gender Information Value Date Recorded Sex Assigned at Not on file Legal Sex Female 6:27 PM EST Gender Identity Not on file Sexual Orientation Not on file Obstetrics History Last Filed [...] Health Maintenance Due Date Last Done Comments Colorectal Cancer Screening: Colonoscopy 1974 Hepatitis B Vaccines (1 of 3 - 19+ 3-dose series) 1993 Pneumococcal Vaccine: 50+ Years (1 of 2 - PCV) 1993 Zoster Vaccines (1 of 2) 1993 Cervical Cancer Screening: Pap Smear 1995 HIV Screening 06/25/2022 Hepatitis C Screening 06/25/2022 Social Influencers of Health Screening 06/25/2022 Depression Screening 07/17/2024 COVID-19 Vaccine ( season) 2025 04/13/2021, 07/24/2020, 07/03/2020 Influenza Vaccine (#1) 2025 4, 05/04/2022, 04/19/2022, Additional history exists Breast Cancer Screening 07/29/2026 07/29/19 25, 07/26/2023, 07/20/2022, Additional history exists DTaP,Tdap,and Td Vaccines (4 - Td or Tdap) 12/22/2026 12/22/2016, 11/11/2016, 07/02/2001 Cholesterol Screening (Lipid Panel) 08/30/2027 08/30/2022 RSV Immunization Adult Patients (1 - 1-dose 75+ series) 2049 MMR Vaccines Aged Out 10/30/2001, 07/02/2001 No lo nger eligible based on patient's age to complete this topic HIB Vaccines Aged Out No longer eligi [...] patient's age to complete this topic Meningococcal B Vaccine Aged Out No l onger eligible based on patient's age to complete [...] or alter the indications for biopsy. ASSESSMENT: BI-RADS 2: BENIGN RECOMMENDATION(S): 1: Routine screening mammogram BILATERAL in 1 year. -------- FINAL REPORT -------- Dictated By: Dedrick Buckley Dictated Date: 07/29/2024 10:41 ET Assigned Physician: Dedrick Buckley Reviewed and Electronically Signed By: Dedrick Buckley Signed Date: 07/29/2024 10:50 ET Workstation ID: [id number] Transcribed By: Self Edit Transcribed Date: 07/29/2024 10:41 ET Narrative 07/29/2024 10:50 AM EST EXAM: SCREENING MAMMOGRAPHY, BILATERAL HISTORY: SCREENING. Personal history of left breast cancer. Left lumpectomy 2011 COMPARISON: 07/26/2023, 07/20/2022, 07/12/2021, 07/08/2020 TECHNIQUE: Synthesized CC and MLO projections of each breast. Tomosynthesis of each breast in the CC and MLO projections. ADDITIONAL IMAGING: None Computer-aided detection was employed with the [employer] 3-D. TISSUE DENSITY: The breasts are heterogeneously dense, which may obscure small masses. (BI-RADS category C) FINDINGS: RIGHT BREAST: No suspicious mass. No suspicious calcification. No distortion. A biopsy site marker in the deep central right breast close to the chest wall is seen only in the craniocaudal view. LEFT BREAST: There is distortion at the site of lumpectomy. There are a few stable calcifications in the [...] Signed Date: 07/29/2024 10:50 ET Workstation ID: [id number] Transcribed By: Self Edit Transcribed Date: 07/29/2024 10:41 ET us Self Referral Sppl IMG BI PROCEDURES Final Resul t * (ABNORMAL) Lipid panel (08/30/2022) LDL/HDL Ratio 4 0 - 4 Triglycerides 100 0 - 150 mg/dL Cholesterol 190 0 - 200 mg/dL HDL 50 >=40 mg/dL LDL Cholesterol 120(A) 0 - 100 mg/dL Blood Venous blood specimen / Unknown us Historical Provider LAB BLOOD ORDERABLES Sapphire burgess Result from Last 3 Months or Most Recently Relevant to Health Maintenance Insurance [facility] Advance Directives Documents on File Type Date Recorded Patient Junior Recruiter Expl anation Health Care Decision (hx) 10/02/2009 [...] (hx) 10/02/2009 AD GREEN DIRECTIVE Care Teams Senior Engineering Technician Relationship Specialty Start Date End Date Fe Reid FNP [address] [place] [address] [place] [address] PCP - General Nurse Practitioner 07/15/24
--- OUTSIDE RECORDS SUMMARY | 2025-05-28 14:14 | XMS_ITS | Patient Health Record ---
[facility] Address [address] [place] [address] Care Team Providers Care Special Programs Director Name Role Phone Mariela Lloyd MD Primary Care Provider Jeovnay dan Siri Hooper Unavailable [phone] Allergies Allergen (clinical drug ingredient) Drug/Non Drug Allergy documented on EMR Reaction Allergy Type Onset Date Status sulfamethoxazole / trimethoprim Bactrim angiodema Drug Allergy Active sulfa angiodema Drug Allergy Active Reason For Referral No Information Medications Medication SIG (Take, Route, Frequency, Duration) Notes Start Date End Date Status Minerals Active Social History Tobacco use other than smoking: Question Answer Notes Are you an other tobacco user? No Problems No Known Problems Plan Of Treatment Pending Test Test Name Order Date X ray : Foot, left 3V 05/20/2016 Insurance Providers Payer Name Payer Address Payer Phone Subscriber Number Group Number Insured Name Patient Relationship to Insured Coverage Start Date Coverage End Date Cigna [address] [facility] [place] [address] [phone] [id number] Sebastian Romero Spouse - patient is the spouse of the insured Medical (General) History Medical History History ICD Code Cancer Chicken pox Warts Surgical History Surgery Date(Month/Year) Myeomectomy 12/2009 Lumpectomy 05/2012
--- OUTSIDE RECORDS SUMMARY | 2025-05-28 14:14 | XMS_ITS | Clinical Summary ---
Author Organization [facility] Address [address] [place] [id number] Phone Care Team Providers Care Director Of Product Management Name Role Phone Mariela Lloyd MD Primary Care Provider [phone] Allergies Active Allergy Reactions Criticality Noted Date Comments Sulfa (Sulfonamide Antibiotics) Angioedema Low 11/15 Medications calcium carbonate (OS-JESSY) 1,250 mg (500 mg elemental) tablet CALCIUM CARBONATE 1250 MG (500 MG [facility] [place]) 500(1250) TABLET; Dose: 1000 MG; Form: Take 2 TABLET; Route: PO; Frequency: QD; Directions: Dose expressed in terms of elemental calcium.; Details: Dispense: 0 Tablet(s); Taking; Status: Active; Source: [employer] Date: 08/02/2012 3 Active VIT/IRON FUMARATE/FA ( ORAL) MULTIVITAMINS; Dose: 1 TAB; Form: Not available; Route: PO; Frequency: QD; Directions: Not available; Details: Dispense: 0; Taking; Status: Active; Source: [employer] Date: 08/02/2012 3 Active progesterone 50 mg/mL injectionIndica tions:Female infertility 2 ml every evening as directed. 40 mL 3 6 Active syringe with needle 3 mL 22 x 1 1/2 SyrgIndications :Female infertility 1 Syringe by Miscellaneous route daily. 30 each 3 6 Active Active Problems Problem Noted Date Diagnosed Date Other specified general medical examination 10/15 Infertility, uterine origin 02/09/2015 Overview (09/05/2018): 2019R1.3 IMO Load Advanced maternal age (AMA), 40 years or greater 08/14/2013 Overview (09/06/2014): AMA - advanced maternal age; neg ffDNA testing S/P myomectomy 08/14/2013 Overview (09/08/2014): S/P Myomectomy; 12/2009--- 02/24/12--excision of uterine fistula and laparoscopic myomectomy Uncoded S/P Dilation of cerv ix uteri and curettage of products of conception from uterus 08/14/2013 Overview (09/08/2014): S/P Dilation of cervix uteri and curettage of products of conception from uterus; 04/2011 (office d&c) 05/2011 d&e under anesthesia [facility] [place] Status post hysteroscopy 08/14/2013 Overview (09/08/2014): S/P Hysteroscopy; 01/11/13---d&c for RPOC's 02/05/13: bx and lysis of adhesions Uncoded S/P IVF 08/14/2013 Overview (09/08/2014): S/P IVF; this is IVF, fresh cycle Hx of 2 spont pregnancies in past, both early MAB. 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 Not on sol e 11/20/2022 Are you concerned about learning? Not on file 11/20/2022 No 11/20/2022 No 11/20/2022 Digital Access Answer Date Recorded No 12/11/2022 No 12/11/2022 No 12/11/2022 Reliable internet access at home? Not on file 12/11/2022 Device with a working camera? Not on file Comments No Sex and Gender Information Value Date Recorded Sex Assigned at Not on file Legal Sex Female 6:31 PM EST Gender Identity Not on file Sexual Orientation Not on file Last Filed Vital Signs Vital Sign Reading Time Taken Comments Blood Pressure 138/89 02/09/2015 10:08 AM EDT Pulse 81 02/09/2015 10:08 AM EDT Temperature 36.6 C (97.8 F) 10/30/2015 1:58 PM EDT Respiratory Rate 16 08/08/2012 9:26 AM EST Oxygen Saturation 97% 10/30/2015 1:58 PM EDT Inhaled Oxygen Concentration - - Weight 84.4 kg (186 lb) 10/30/2015 1:58 PM EDT Height 170.2 cm (5' 7 ) 10/30/2015 1:58 PM EDT Body Mass Index 29.13 10/30/2015 1:58 PM EDT Plan of Treatment Health Maintenance Due Date Last Done Comments LIPID PANEL 1974 HEPATITIS C SCREENING 1992 PAP SMEAR 1995 MAMMOGRAM 2014 DEPRESSION SCREENING 10/29/2016 10/30/2015, 02/10/20 15 COLOGUARD 2019 COLONOSCOPY 2019 COLORECTAL CANCER SCREENING 2019 FIT TEST 2019 FOBT 2019 SIGMOIDOSCOPY 2019 VIRTUAL COLONOSCOPY 2019 PNEUMOCOCCAL VACCINES (50+ years) (1 of 1 - PCV) 2024 ZOSTER VACCINES (1 of 2) 2024 INFLUENZA VACCINE (#1) 2025 0, 05/01/2019, 04/27/2018, Additional history exists COVID-19 VACCINE ( season) 2025 07/24/2020, 07/03/2020 Adult Td,Tdap Booster 12/22/2026 12/22/2016 RSV VACCINE (1 - 1-dose 75+ series) 2049 HIV ONE-TIME SCREENING (18-65 YEARS) Completed 08/14/2013 SMOKING STATUS SCREENING (Once After 26 Yrs) Completed 02/09/2015 HEPATITIS A VACCINES Aged Out No long er eligible based on patient's age to complete this topic HIB VACCINES Aged Out No longer eligi ble based on patient's age to complete this topic IPV VACCINES Aged Out No longer eligi ble based on patient's age to complete this topic MENINGOCOCCAL VACCINES (ACWY) Aged Out No longer eligible based on patient's age to complete this topic MENINGOCOCCAL VACCINES (B) Aged Out N o longer eligible based on patient's age to complete this topic Medical Devices Not on file Insurance CIGNA PPO CIGNA PPO CIGNA PPO CIGNA PPO CIGNA PPO CIGNA PPO CIGNA PPO Member Subscriber Plan / Payer (Ef fective 2011-Present) Name:Odilia Romero Relation to Subscriber:Spouse Name:NAVDEEP ROMERO Date of :1969 (Home) Address: [address] [place] [address] Payer ID:[id number] (NAIC) Type:PPO Address: [address] [place] [id number] CIGNA PPO CIGNA PPO Advance Directives For more information, please contact: [phone] (9AM - 5PM [facility], Monday-Monday) Documents on File Type Date Recorded 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 It is not the complete legal health record.[facility]
== END 2025-05-28 11:27 | disposition home or self-care (01) ==
LOC: HO.HMCFM 11:26
PROVIDERS: PCP Nurse Practitioner Family; Visit Provider Nurse Practitioner Family
DX: Z23 Encounter for immunization (principal)

== ENCOUNTER → 2025-05-28 11:26 | Outpatient (BNVA) | payer OTHER, SELFPAY | PROVIDERS: PCP Nurse Practitioner Family; Visit Provider Nurse Practitioner Family | DX: Z23 Encounter for immunization (principal) | CPT/HCPCS: 90471; 90656 ==